=== PATIENT | male | born 1955 | race Caucasian/White ===

== ENCOUNTER 2017-04-10 19:13 | Emergency (ER) | payer OTHER ==
[~2017-04-10] VITALS: Ht 182.9 cm; Wt 154.2 kg
[~2017-04-10 19:13] MED LIST changes: -AMOX-559 PO; -ATOR40TA24 PO; -LISI-362 PO; -MELO-207 PO; -RIVA20TA PO
--- NOTE | 2017-04-10 19:15 | ER Report ---
History and Physical Time Seen By MD: 19:15 HPI/ROS CHIEF COMPLAINT: short of breath HISTORY OF PRESENT ILLNESS: This is a 62 year old male. He was sent to the ER from [facility] urgent care because of shortness of breath and hypoxia. He had back surgery at [facility] this morning, laminectomy done. He has had a terrible sore throat after surgery. He has a history of PE x 2 in the past. Stopped Xarelto for his surgery today and is scheduled to restart it tomorrow. No fevers or chills. Some chest tightness. Mild cough. Hypoxia at urgent care today; feels better with oxygen. Mild congestion. No chest pain except with cough. No abdominal pain, nausea or vomiting. He has had normal urination. Normal bowel movement yesterday, but no bowel movement today. Back with pain expected post-op. REVIEW OF SYSTEMS: Constitutional: No fever or chills. Eyes: No vision changes. ENT: As above. Cardiovascular: No palpitations. Respiratory: As above. Gastrointestinal: No abdominal pain. No nausea or vomiting. Genitourinary: No dysuria. Musculoskeletal: No other musculoskeletal pain. Skin: No rashes. Neurological: No headache. No focal weakness. Allergies: Coded Allergies: Hydromorphone (Verified Adverse Reaction, Severe, BODY JERKS UNCONTROLLABLY, 01/11/13) Home Meds Active Scripts Amoxicillin/Pot Clav 875-125 Mg Tab (AUGMENTIN 875-125 TABLET) 1 Each Tablet, 1 TAB PO Q12H for 10 Days, #20 TAB 0 Refills Prov:FIDELINA SMITH MD 04/10/17 Reported Medications Lisinopril (LISINOPRIL) 10 Mg Tablet, 10 MG PO QDAY, TAB 04/10/17 Meloxicam (MELOXICAM) 15 Mg Tablet, 7.5 MG PO QDAY 04/10/17 Atorvastatin Calcium (LIPITOR) 40 Mg Tablet, 2 TAB PO QDAY, TAB 04/10/17 Rivaroxaban 20 Mg (XARELTO 20 MG) 20 Mg Tablet, 20 MG PO, TAB 04/10/17 Oxycodone Hcl/Acetaminophen (PERCOCET 5-325 MG TABLET) 1 Each Tablet, 1-2 EACH PO Y for PAIN 01/13/13 Metoprolol Tartrate (METOPROLOL TARTRATE) 50 Mg Tab, 1 TAB PO QAM, TAB TAKE ONE TABLET BY MOUTH TWICE A DAY 01/11/13 Cyclosporine (RESTASIS) 1 Each Droperette, 1 EACH OP BID 01/11/13 Insulin Aspart (NOVOLOG) 100 Unit/1 Ml Cartridge, UNIT SQ TID PER SS 01/11/13 Insulin Detemir (LEVEMIR) 100 Unit/Ml Injs, 90 UNIT SUBQ BID 01/11/13 Lansoprazole (PREVACID) 30 Mg Capsule.dr, 30 MG PO QHS, #5 MG TAKE ONE CAPSULE BY MOUTH EVERY DAY 01/11/13 Tamsulosin Hcl (FLOMAX) 0.4 Mg Cap.er.24h, 0.4 MG PO QHS, #5 08/11/12 Duloxetine Hcl (CYMBALTA) 30 Mg Capsule.dr, 30 MG PO QAM 08/11/12 Modafinil (Provigil) 100 Mg Tab, 200 MG PO QAM 04/27/11 Finasteride (Proscar) 5 Mg Tab, 5 MG PO QPM, 0 Refills 10/31/10 Terazosin Hcl (Hytrin) 5 Mg Capsule, 5 MG PO QHS, 0 Refills 10/31/10 Furosemide (Furosemide) 40 Mg Tablet, 40 MG PO QAM, 0 Refills 10/31/10 Sitagliptin Phos/Metformin Hcl (Janumet 50-1,000 Mg Tablet) 1 Udtab Tablet, 1 UDTAB PO QAM, 0 Refills 10/31/10 Gabapentin (Neurontin) 600 Mg Tablet, 600 MG PO PRN, 0 Refills DOSEAGE CHANGES ACCORDING TO NEED (PER PATIENT) 10/31/10 Discontinued Reported Medications Docusate Sodium (COLACE) 100 Mg Capsule, 100 MG PO BID, CAPSULE 01/13/13 Enoxaparin Sodium (LOVENOX) 100 Mg/1 Ml Disp.syrin, 100 MG SQ BID 01/11/13 Warfarin Sod (Coumadin) 1 Mg Tab, 5 MG PO QDAY, #30 3 Refills take 1 tab by mouth once daily 10/31/10 Past Medical/Surgical History PE x 2 in the past. Low back problems with surgery today as noted. Reviewed Nurses Notes: Yes Hx Smoking: No Hx Substance Use Disorder: No Hx Alcohol Use: No Constitutional Vital Sign - Last 24 Hours 04/10/17 04/10/17 04/10/17 2/2/18 19:13 19:17 19:22 19:28 Temp 99.2 Pulse ??? 72 75 Resp 20 B/P (MAP) 124/60 (81) 124/60 Pulse Ox 91 91 O2 Delivery Nasal Cannula 04/10/17 04/10/17 04/10/17 04/10/17 19:30 19:43 19:58 20:00 Pulse 69 ??? B/P (MAP) 125/65 (85) ???/??? (1665) Pulse Ox 93 93 04/10/17 04/10/17 04/10/17 04/10/17 20:13 20:15 20:28 20:30 Pulse ? B/P (MAP) 132/66 (88) O2 Flow Rate 5.0 04/10/17 04/10/17 04/10/17 04/10/17 20:43 20:58 21:00 21:05 Pulse ? 75 B/P (MAP) 128/67 (87) Pulse Ox 93 04/10/17 04/10/17 04/10/17 04/10/17 21:10 21:15 21:20 21:25 Pulse 72 74 75 76 Pulse Ox 93 92 94 91 04/10/17 04/10/17 04/10/17 04/10/17 21:30 21:35 21:40 21:45 Pulse 74 72 72 75 B/P (MAP) 124/60 (81) Pulse Ox 92 94 93 93 04/10/17 04/10/17 04/10/17 04/10/17 21:50 21:55 22:00 22:05 Pulse 75 72 69 70 B/P (MAP) 132/66 (88) Pulse Ox 93 93 93 93 04/10/17 04/10/1704/10/04/10/17 22:10 22:15 22:20 22:25 Pulse 70 69 71 84 Pulse Ox 93 93 92 92 04/10/17 04/10/17 04/10/17 04/10/17 22:30 22:35 22:40 22:45 Pulse 69 72 73 71 B/P (MAP) 132/62 (85) Pulse Ox 91 91 93 90 04/10/17 04/10/17 04/10/17 04/10/17 22:50 22:55 23:00 23:05 Pulse 72 70 73 92 B/P (MAP) 141/65 (90) Pulse Ox 92 89 91 79 Physical Exam General Appearance: The patient is alert. No acute distress. Eyes: Pupils are equal, round. Reactive to light. No pallor, injection or icterus. Extraocular movements are intact. ENT: Mucous membranes are moist. Normal oral mucosa. Posterior oropharynx is erythematous. Normal nasal mucosa. Normal tympanic membranes and canals. Neck: Supple and non tender. No lymphadenopathy. Respiratory: Breathing easily and unlabored. Lungs are clear to auscultation. On oxygen 2 liters by nasal canula. Cardiovascular: Regular rate and rhythm. No murmurs, gallops or rubs. Normal capillary refill. He has chronic bilateral lower extremity edema, wearing compression stockings. Gastrointestinal: Abdomen is soft and non tender. Nondistended. Normal active bowel sounds. Neurological: Alert and oriented x3. No focal neurologic deficits. Skin: Warm and dry. No rashes. Low back incision clean and intact. Some pink serous on the bandage. Musculoskeletal: Extremities are nontender. Tenderness over the surgery site in the low back. DIFFERENTIAL DIAGNOSIS: After history and physical exam, differential diagnosis was considered for shortness of breath with hypoxia, concerning for pulmonary embolism or pulmonary infectious process. Medical Decision Making Data Points Result Diagram: 04/10/17192404/10/171924 Laboratory Hematology Test 04/10/17 19:25 04/10/17 19:40 Red Blood Count 4.25 M/uL (4.00-5.60) Mean Corpuscular Volume 93.4 fL (80.0-96.0) Mean Corpuscular Hemoglobin 31.8 pg (26.0-33.0) Mean Corpuscular Hemoglobin Concent 34.0 g/dL (32.0-36.0) Red Cell Distribution Width 13.8 % (11.5-14.5) Mean Platelet Volume 8.3 fL (7.2-11.1) Neutrophils (%) (Auto) 75.9 % (39.4-72.5) Lymphocytes (%) (Auto) 10.0 % (17.6-49.6) Monocytes (%) (Auto) 13.1 % (4.1-12.4) Eosinophils (%) (Auto) 0.5 % (0.4-6.7) Basophils (%) (Auto) 0.5 % (0.3-1.4) Nucleated RBC Relative Count (auto) 0.0 /100WBC Neutrophils # (Auto) 5.7 K/uL (2.0-7.4) Lymphocytes # (Auto) 0.8 K/uL (1.3-3.6) Monocytes # (Auto) 1.0 K/uL (0.3-1.0) Eosinophils # (Auto) 0.0 K/uL (0.0-0.5) Basophils # (Auto) 0.0 K/uL (0.0-0.1) Nucleated RBC Absolute Count (auto) 0.00 K/uL Prothrombin Time 13.7 seconds (12.0-14.4) Prothromb Time International Ratio 1.05 Activated Partial Thromboplast Time 24 seconds (23-35) Sodium Level 138 mmol/L (137-145) Potassium Level 4.6 mmol/L (3.5-5.0) Chloride Level 100 mmol/L (98-107) Carbon Dioxide Level 27 mmol/L (22-30) Blood Urea Nitrogen 22 mg/dl (9-21) Creatinine 1.50 mg/dl (0.66-1.25) Glomerular Filtration Rate Calc 47.1 Random Glucose 159 mg/dl (75-110) Calcium Level 9.6 mg/dl (8.4-10.2) Total Bilirubin 0.5 mg/dl (0.2-1.3) Aspartate Amino Transf (AST/SGOT) 84 U/L (0-35) Alanine Aminotransferase (ALT/SGPT) 39 U/L (0-56) Alkaline Phosphatase 83 U/L (0-126) Troponin I < 0.012 ng/ml B-Type Natriuretic Peptide 30 pg/ml (0-100) Total Protein 6.9 gm/dl (6.3-8.2) Albumin 3.9 g/dl (3.5-5.0) Group A Streptococcus Screen Negative (NEGATIVE) Chemistry Test 04/10/17 19:25 04/10/17 19:40 White Blood Count 7.5 k/uL (4.5-11.0) Red Blood Count 4.25 M/uL (4.00-5.60) Hemoglobin 13.5 g/dL (14.0-18.0) Hematocrit 39.7 % (42.0-52.0) Mean Corpuscular Volume 93.4 fL (80.0-96.0) Mean Corpuscular Hemoglobin 31.8 pg (26.0-33.0) Mean Corpuscular Hemoglobin Concent 34.0 g/dL (32.0-36.0) Red Cell Distribution Width 13.8 % (11.5-14.5) Platelet Count 151 K/uL (150-450) Mean Platelet Volume 8.3 fL (7.2-11.1) Neutrophils (%) (Auto) 75.9 % (39.4-72.5) Lymphocytes (%) (Auto) 10.0 % (17.6-49.6) Monocytes (%) (Auto) 13.1 % (4.1-12.4) Eosinophils (%) (Auto) 0.5 % (0.4-6.7) Basophils (%) (Auto) 0.5 % (0.3-1.4) Nucleated RBC Relative Count (auto) 0.0 /100WBC Neutrophils # (Auto) 5.7 K/uL (2.0-7.4) Lymphocytes # (Auto) 0.8 K/uL (1.3-3.6) Monocytes # (Auto) 1.0 K/uL (0.3-1.0) Eosinophils # (Auto) 0.0 K/uL (0.0-0.5) Basophils # (Auto) 0.0 K/uL (0.0-0.1) Nucleated RBC Absolute Count (auto) 0.00 K/uL Prothrombin Time 13.7 seconds (12.0-14.4) Prothromb Time International Ratio 1.05 Activated Partial Thromboplast Time 24 seconds (23-35) Glomerular Filtration Rate Calc 47.1 Calcium Level 9.6 mg/dl (8.4-10.2) Total Bilirubin 0.5 mg/dl (0.2-1.3) Aspartate Amino Transf (AST/SGOT) 84 U/L (0-35) Alanine Aminotransferase (ALT/SGPT) 39 U/L (0-56) Alkaline Phosphatase 83 U/L (0-126) Troponin I < 0.012 ng/ml B-Type Natriuretic Peptide 30 pg/ml (0-100) Total Protein 6.9 gm/dl (6.3-8.2) Albumin 3.9 g/dl (3.5-5.0) Group A Streptococcus Screen Negative (NEGATIVE) Coagulation Test 04/10/17 19:25 Prothrombin Time 13.7 seconds Prothromb Time International Ratio 1.05 Activated Partial Thromboplast Time 24 seconds EKG/Imaging EKG Interpretation 12 lead EKG: Rhythm: normal sinus rhythm, rate 76. One PVC. Victor: normal QRS: normal ST segments: normal Imaging CTA CHEST WW/O CNTR (PULM ANG) HISTORY: short of breath, hypoxia ADDITIONAL HISTORY: None. TECHNIQUE: CTA chest with intravenous contrast. Axial imaging acquired following administration of IV contrast timed for maximum opacification of the pulmonary arterial vasculature. Slab 3-D MIP reconstructed images were also created for further evaluation and interpretation. Reconstruction of the source data set includes multiplanar 2-D in the sagittal and coronal planes and 3-D reconstructed coronal slab MIP series. 3-D images were created by the technologist. One of the following dose optimization techniques was utilized in the performance of this exam: Automated exposure control; adjustment of the mA and/or kV according to the patient's size; or use of an iterative reconstruction technique. Specific details can be referenced in the facility's radiology CT exam operational policy. CONTRAST: 80 mL Isovue-370 COMPARISON: FINDINGS: Lungs/pleura: There is left lower lobe pulmonary consolidation. A 2 cm bulla is seen in the left upper lobe. The right lung is well aerated. 4 mm subpleural calcified nodule is noted consistent with a granuloma. Heart/vessels: The acquisition is slightly late with suboptimal opacification of the pulmonary arterial tree. However, I believe it is sufficient to exclude pulmonary emboli through at least the central pulmonary arteries. Mediastinum/lymph nodes: Negative. Visualized upper abdomen: Negative. Bones/soft tissues: Negative. Additional findings: None IMPRESSION: Left lower lobe pulmonary consolidation concerning for pneumonia and probable etiology of patient's symptoms. Suboptimal pulmonary arterial tree enhancement but I believe sufficient to exclude at least central pulmonary emboli. Report Dictated By: Nathaniel Messina MD at 04/10/2017 8:33 PM ED Course/Re-evaluation Clinical Indication for ER IV: Hydration, IV Access ED Course CTA was ordered because of risk of PE. Sub-optimal contrast timing, but no evidence of PE. Did have a small area of consolidation of the left base. His oxygen saturations are 92% on 4 liters by nasal canula. He is on oxygen at home and this is his normal amount. No fevers at this time. Labs are otherwise unremarkable. Reviewed the labs results with the patient. Will start on Augmentin 875/125 twice a day for 10 days. He will call to follow-up with Dr. Arredondo after the weekend on Thursday. Decision to Disposition Date: Apr 10, 2017 Decision to Disposition Time: 23:01 Depart Departure Latest Vital Signs Vital Signs Date Time Temp Pulse Resp B/P (MAP) Pulse Ox O2 Delivery O2 Flow Rate FiO2 04/10/17 23:05 92 79 04/10/17 23:00 141/65 (90) 04/10/17 20:15 5.0 04/10/17 19:22 99.2 20 Nasal Cannula Impression: Primary Impression: Pneumonia Condition: Improved Disposition: HOME OR SELF-CARE Referrals: LAMINE ARREDONDO DO (PCP) New Scripts Amoxicillin/Pot Clav 875-125 Mg Tab (AUGMENTIN 875-125 TABLET) 1 Each Tablet 1 TAB PO Q12H for 10 Days, #20 TAB 0 Refills Prov: FIDELINA SMITH MD 04/10/17 Patient Instructions: Bacterial Pneumonia (ED) Additional Instructions: Take the antibiotic Augmentin 875/125 twice a day for 10 days. Keep using your oxygen at 4 liters. Call and arrange follow-up with Dr. Arredondo this week. Follow-up with your back surgeon as planned next week. Problem Qualifiers Primary Impression: Pneumonia Pneumonia type: due to unspecified organism Laterality: left Lung location : lower lobe of lung Qualified Codes: J18.1 - Lobar pneumonia, unspecified organism FIDELINA SMITH MD Apr 10, 2017 19:15
[2017-04-10] MEDS ORDERED: NS(*) 0.9% 1000 ML BAG 1,000 ML IV ONE (19:22)
[2017-04-10 19:37] LABS: PLATELET COUNT, AUTOMATED 151 K/uL (150-450)
[2017-04-10 19:43] LABS: INR 1.05
--- NOTE | 2017-04-10 19:43 | EKG ---
FACILITY: [facility] PATIENT NAME: TASHA PATHAK : [id number] MR: [id number] V: [id number] EXAM DATE: ORDERING PHYSICIAN: FIDELINA SMITH TECHNOLOGIST: [place] Reason : Blood Pressure : / mmHG Vent. Rate : 076 BPM Atrial Rate : 076 BPM P-R Int : 166 ms QRS Dur : 080 ms QT Int : 360 ms P-R-T Axes : 052 -11 025 degrees QTc Int : 405 ms Sinus rhythm with occasional premature ventricular complexes Otherwise normal ECG When compared with ECG of 11-JAN-2013 12:12, premature ventricular complexes are now present Questionable change in QRS axis Confirmed by NOREEN GILL ([id number]) on 04/11/2017 7:45:12 AM Referred By: Confirmed By:NOREEN GILL
[2017-04-10] MEDS ORDERED: RIVA20TA PO (19:44)
[2017-04-10] MEDS ORDERED: ATOR40TA24 PO (19:46)
[2017-04-10] MEDS ORDERED: LISI-362 PO (19:47)
[2017-04-10] MEDS ORDERED: MELO-207 PO (19:47)
[2017-04-10] MEDS ORDERED: IOPAMIDOL 76% 75 ML INFUS BTL 75 ML ONE (19:57)
[2017-04-10] MEDS ORDERED: NS 0.9% 20 ML SDV 100 ML ONE (19:57)
--- NOTE | 2017-04-10 21:38 | RADIOLOGY IMAGING REPORT ---
[facility] PATIENT NAME: Jus Olivo : 1955 MR: [id number] V: [id number] EXAM DATE: ORDERING PHYSICIAN: FIDELINA SMITH TECHNOLOGIST: Location: [facility] [place] Patient: Jus Olivo : 1955 Visit/Account:[id number] Date of Sevice: 04/10/2017 CTA CHEST WW/O CNTR (PULM ANG) HISTORY: short of breath, hypoxia ADDITIONAL HISTORY: None. TECHNIQUE: CTA chest with intravenous contrast. Axial imaging acquired following administration of IV contrast timed for maximum opacification of the pulmonary arterial vasculature. Slab 3-D MIP solitario nstructed images were also created for further evaluation and interpretation. Reconstruction of the [facility] data set includes multiplanar 2-D in the sagittal and coronal planes and 3-D reconstructed kelly nal slab MIP series. 3-D images were created by the technologist. One of the following dose optimiz ation techniques was utilized in the performance of this exam: Automated exposure control; adjustment of the mA and/or kV according to the patient's size; or use of an iterative reconstruction techniqu e. Specific details can be referenced in the facility's radiology CT exam operational policy. CONTRAST: 80 mL Isovue-370 COMPARISON: FINDINGS: Lungs/pleura: There is left lower lobe pulmonary consolidation. A 2 cm bulla is seen in the left uppe r lobe. The right lung is well aerated. 4 mm subpleural calcified nodule is noted consistent with a g ranuloma. Heart/vessels: The acquisition is slightly late with suboptimal opacification of the pulmonary arter ial tree. However, I believe it is sufficient to exclude pulmonary emboli through at least the centra l pulmonary arteries. Mediastinum/lymph nodes: Negative. Visualized upper abdomen: Negative. Bones/soft tissues: Negative. Additional findings: None IMPRESSION: Left lower lobe pulmonary consolidation concerning for pneumonia and probable etiology of patient's s ymptoms. Suboptimal pulmonary arterial tree enhancement but I believe sufficient to exclude at least central p ulmonary emboli. Report Dictated By: Nathaniel Messina MD at 04/10/2017 8:33 PM Report E-Signed By: Nathaniel Messina MD at 04/10/2017 9:34 PM WSN:[id number]
[2017-04-10 23:00] VITALS: BP 141/65
[2017-04-10] MEDS ORDERED: AMOX/CLAV 875 MG TAB PO ONE (23:00)
[2017-04-10] MEDS ORDERED: AMOX-559 PO (23:02)
== END 2017-04-10 23:20 | disposition home or self-care (01) ==
LOC: ER 19:19
DX: J18.1 Lobar pneumonia, unspecified organism (principal)
CPT/HCPCS: 71275; 83880; 84484; 85025; 85610; 85730; 87081; 87880; 93005; 96360; 96361; 99284; J7030; J7050; Q9967; 82040; 82247; 82310; 82374; 82435; 82565; 82947; 84075; 84132; 84155; 84295; 84450; 84460; 84520

== ENCOUNTER → 2017-04-10 | Outpatient (CLI) | payer OTHER ==
[~2017-04-10] MED LIST: AMOX-559 PO; ATOR40TA24 PO; CEP500 PO; CYC10 PO; CYCL1DRO6 OP; DOCU-416 PO; DOXY150T6 PO; DULO30CA35 PO; ENO100I; ENO40I SQ; ENOX100D5 SQ; FIN5 PO; FURO-47 PO; GABA-1 PO; HUM100VI15 SQ; HYD2 PO; HYDROCODONE PO; INSU100C14 SQ; INSU100I36 SQ; KET10 PO; LAN30PT PO; LEVI SQ; LEVI SUBQ; LISI-362 PO; MAX75 PO; MEC25 PO; MELO-207 PO; MET50 PO; METANXPT PO; METO-253 PO; METO-259 PO; MOD100 PO; MODA100T32 PO; MODA200T39 PO; NIT4 SL; NOR25 PO; NOVOLOG SC; OFF WARFARIN; OMEP-153 PO; OMEP40CA79 PO; ONDA4TAB PO; OXY10 PO; OXYC-689 PO; OXYC-865 PO; OXYC20TA86 PO; RIVA20TA PO; SITA1TAB16 PO; TAMS0.4C25 PO; TERA10CA42 PO; TERA5CAP57 PO; WAR1 PO; WAR5 PO; WARF4TAB47 PO
== END ==
LOC: AMB 18:44
PROVIDERS: ATTEND Nurse Practitioner
DX: R07.89 Other chest pain (principal); R07.0 Pain in throat; R09.02 Hypoxemia
CPT/HCPCS: A0425; A0427

== ENCOUNTER 2017-05-22 12:47 | Emergency (ER) | payer OTHER ==
[~2017-05-22 12:47] MED LIST changes: +AMOX-559 PO; +ATOR40TA24 PO; +LISI-362 PO; +MELO-207 PO; +RIVA20TA PO
--- NOTE | 2017-05-22 12:55 | ER Report ---
History and Physical Time Seen By MD: 12:53 HPI/ROS CHIEF COMPLAINT: Patient sent for possible pneumonia from urgent care HISTORY OF PRESENT ILLNESS: This 62-year-old male referred to the emergency Department from [facility] for evaluation of shortness of breath and possible pneumonia. Patient has been seen twice at the urgent care facility and recently started on doxycycline for a clinical diagnosis of pneumonia. Patient still feeling short of breath has a history of PE 2 in the past medication list states that he is on xarelto. Patient states that he is been coughing up green sputum for the past 3-4 days. Subjective fevers but did not actually take his temperature. Patient does have some pleuritic chest pain and pain with cough but denies actual pain otherwise. Patient has a history of multiple episodes of acute bronchitis. He is oxygen dependent and wears 3-5 L continuously. REVIEW OF SYSTEMS: Constitutional: Subjective fevers no chills Eyes: No discharge. ENT: No sore throat. Cardiovascular: Pleuritic chest pain, no palpitations Respiratory: Hacking productive cough of green sputum Gastrointestinal: No abdominal pain, no vomiting. Genitourinary: No hematuria. Musculoskeletal: No back pain. Skin: No rashes. Neurological: No headache. Allergies: Coded Allergies: hydromorphone (Verified Adverse Reaction, Severe, BODY JERKS UNCONTROLLABLY, 05/22/17) Home Meds Active Scripts Albuterol Sulfate 0.083% (ALBUTEROL SULFATE 0.083%) 2.5 Mg/3 Ml Vial.neb, 2.5 MG INH Q6H for cough, #1 BOX 0 Refills Prov:EMMA ESPINOZA MD 05/22/17 Promethazine HCl/Codeine (Promethazine-Codeine Syrup) 6.25 Mg-10 Mg/5 Ml Syrup, 5 ML PO Q6H for cough, #120 ML 0 Refills Prov:EMMA ESPINOZA MD 05/22/17 Reported Medications Benzonatate 100 Mg Cap (TESSALON PERLE 100 MG CAP) 100 Mg Capsule, 200 MG PO TID , #15 CAP 05/22/17 Doxycycline Hyclate (DOXYCYCLINE HYCLATE) 100 Mg Tablet.dr, 100 MG PO BID 05/22/17 Doxycycline Hyclate (DOXYCYCLINE HYCLATE) 100 Mg Capsule, 100 MG PO BID, CAPSULE 05/22/17 Levothyroxine Sodium (SYNTHROID) 50 Mcg Tablet, 50 MCG PO QDAY, TAB 05/22/17 Glipizide (GLIPIZIDE XL) 2.5 Mg Tab.er.24, 2.5 MG PO DAILY 05/22/17 Metaxalone (METAXALONE) 800 Mg Tablet, 800 MG PO DAILY 05/22/17 Omeprazole (OMEPRAZOLE) 20 Mg Capsule.dr, 1 CAP PO QDAY, CAP 05/22/17 Lisinopril (LISINOPRIL) 10 Mg Tablet, 10 MG PO QDAY, TAB 04/10/17 Meloxicam (MELOXICAM) 15 Mg Tablet, 15 MG PO QDAY 04/10/17 Atorvastatin Calcium (LIPITOR) 40 Mg Tablet, 2 TAB PO QDAY, TAB 04/10/17 Rivaroxaban 20 Mg (XARELTO 20 MG) 20 Mg Tablet, 20 MG PO DAILY, TAB 04/10/17 Metoprolol Tartrate (METOPROLOL TARTRATE) 50 Mg Tab, 1 TAB PO QAM, TAB 01/11/13 Insulin Aspart (NOVOLOG) 100 Unit/1 Ml Cartridge, UNIT SQ TID PER SS 01/11/13 Insulin Detemir (LEVEMIR) 100 Unit/Ml Injs, 90 UNIT SUBQ BID 01/11/13 Lansoprazole (PREVACID) 30 Mg Capsule.dr, 30 MG PO QHS, #5 MG TAKE ONE CAPSULE BY MOUTH EVERY DAY 01/11/13 Duloxetine Hcl (CYMBALTA) 30 Mg Capsule.dr, 30 MG PO QAM 08/11/12 Modafinil (Provigil) 100 Mg Tab, 200 MG PO QAM 04/27/11 Finasteride (Proscar) 5 Mg Tab, 5 MG PO QPM, 0 Refills 10/31/10 Terazosin Hcl (Hytrin) 5 Mg Capsule, 5 MG PO QHS, 0 Refills 10/31/10 Furosemide (Furosemide) 40 Mg Tablet, 40 MG PO QAM, 0 Refills 10/31/10 Sitagliptin Phos/Metformin Hcl (Janumet 50-1,000 Mg Tablet) 1 Udtab Tablet, 1 UDTAB PO QAM, 0 Refills 10/31/10 Gabapentin (Neurontin) 600 Mg Tablet, 600 MG PO PRN, 0 Refills DOSEAGE CHANGES ACCORDING TO NEED (PER PATIENT) 10/31/10 Discontinued Reported Medications Oxycodone Hcl/Acetaminophen (PERCOCET 5-325 MG TABLET) 1 Each Tablet, 1-2 EACH PO Y for PAIN 01/13/13 Cyclosporine (RESTASIS) 1 Each Droperette, 1 EACH OP BID 01/11/13 Tamsulosin Hcl (FLOMAX) 0.4 Mg Cap.er.24h, 0.4 MG PO QHS, #5 08/11/12 Discontinued Scripts Amoxicillin/Pot Clav 875-125 Mg Tab (AUGMENTIN 875-125 TABLET) 1 Each Tablet, 1 TAB PO Q12H for 10 Days, #20 TAB 0 Refills Prov:FIDELINA SMITH MD 04/10/17 Past Medical/Surgical History Past medical history for pulmonary embolism 2 in the past history of insulin requiring diabetes history of hypercholesterolemia and hypertension Hx Smoking: No Hx Substance Use Disorder: No Hx Alcohol Use: No Constitutional Vital Sign - Last 24 Hours 05/22/17 05/22/17 05/22/17 05/22/17 12:51 12:51 13:00 14:05 Temp 98.8 Pulse 86 62 Resp 22 7 B/P (MAP) 136/72 136/72 (93) Pulse Ox 94 94 93 O2 Delivery Nasal Cannula Nasal Cannula O2 Flow Rate 5.0 4.0 05/22/17 05/22/17 05/22/17 05/22/17 14:05 14:16 14:30 15:18 Pulse 69 73 69 Resp 12 12 23 B/P (MAP) 124/76 (92) Pulse Ox 92 94 O2 Delivery Nasal Cannula O2 Flow Rate 4.0 05/22/17 05/22/17 05/22/17 15:18 15:27 16:15 Pulse 95 69 72 Resp 12 12 18 B/P (MAP) 116/44 (68) Pulse Ox 93 Physical Exam General Appearance: The patient is alert, has no immediate need for airway protection and no signs of toxicity. Eyes: Pupils equal and round no pallor or injection. ENT, Mouth: Mucous membranes are moist. Respiratory: Patient has no retractions. Lungs are diminished breath sounds bilaterally with inspiratory rhonchi as well as expiratory rhonchi with wheezes heightened with cough. Cardiovascular: Regular rate and rhythm. Gastrointestinal: Abdomen is soft and non tender, no masses, bowel sounds normal. Neurological: Awake alert nontoxic Skin: Warm and dry, no rashes. Musculoskeletal: Neck is supple non tender. Extremities are nontender, nonswollen and have full range of motion. Medical Decision Making Data Points Result Diagram: 05/22/17 1323 05/22/17 1323 Laboratory Hematology Test 05/22/17 13:23 05/22/17 14:00 Red Blood Count 4.16 M/uL (4.00-5.60) Mean Corpuscular Volume 93.5 fL (80.0-96.0) Mean Corpuscular Hemoglobin 31.8 pg (26.0-33.0) Mean Corpuscular Hemoglobin Concent 34.0 g/dL (32.0-36.0) Red Cell Distribution Width 13.6 % (11.5-14.5) Mean Platelet Volume 8.5 fL (7.2-11.1) Neutrophils (%) (Auto) 74.9 % (39.4-72.5) Lymphocytes (%) (Auto) 8.7 % (17.6-49.6) Monocytes (%) (Auto) 13.7 % (4.1-12.4) Eosinophils (%) (Auto) 2.0 % (0.4-6.7) Basophils (%) (Auto) 0.7 % (0.3-1.4) Nucleated RBC Relative Count (auto) 0.2 /100WBC Neutrophils # (Auto) 3.3 K/uL (2.0-7.4) Lymphocytes # (Auto) 0.4 K/uL (1.3-3.6) Monocytes # (Auto) 0.6 K/uL (0.3-1.0) Eosinophils # (Auto) 0.1 K/uL (0.0-0.5) Basophils # (Auto) 0.0 K/uL (0.0-0.1) Nucleated RBC Absolute Count (auto) 0.01 K/uL Prothrombin Time 15.4 seconds (12.0-14.4) Prothromb Time International Ratio 1.21 Activated Partial Thromboplast Time 29 seconds (23-35) Sodium Level 134 mmol/L (137-145) Potassium Level 5.1 mmol/L (3.5-5.0) Chloride Level 98 mmol/L (98-107) Carbon Dioxide Level 26 mmol/L (22-30) Blood Urea Nitrogen 26 mg/dl (9-21) Creatinine 1.40 mg/dl (0.66-1.25) Glomerular Filtration Rate Calc 51.0 Random Glucose 278 mg/dl (75-110) Calcium Level 9.6 mg/dl (8.4-10.2) Total Bilirubin 0.4 mg/dl (0.2-1.3) Aspartate Amino Transf (AST/SGOT) 30 U/L (0-35) Alanine Aminotransferase (ALT/SGPT) 44 U/L (0-56) Alkaline Phosphatase 98 U/L (0-126) Troponin I < 0.012 ng/ml B-Type Natriuretic Peptide 42 pg/ml (0-100) Total Protein 6.7 gm/dl (6.3-8.2) Albumin 4.0 g/dl (3.5-5.0) Influenza Virus Type A (PCR) Negative (NEGATIVE) Influenza Virus Type B (PCR) Negative (NEGATIVE) Chemistry Test 05/22/17 13:23 05/22/17 14:00 White Blood Count 4.5 k/uL (4.5-11.0) Red Blood Count 4.16 M/uL (4.00-5.60) Hemoglobin 13.2 g/dL (14.0-18.0) Hematocrit 38.9 % (42.0-52.0) Mean Corpuscular Volume 93.5 fL (80.0-96.0) Mean Corpuscular Hemoglobin 31.8 pg (26.0-33.0) Mean Corpuscular Hemoglobin Concent 34.0 g/dL (32.0-36.0) Red Cell Distribution Width 13.6 % (11.5-14.5) Platelet Count 148 K/uL (150-450) Mean Platelet Volume 8.5 fL (7.2-11.1) Neutrophils (%) (Auto) 74.9 % (39.4-72.5) Lymphocytes (%) (Auto) 8.7 % (17.6-49.6) Monocytes (%) (Auto) 13.7 % (4.1-12.4) Eosinophils (%) (Auto) 2.0 % (0.4-6.7) Basophils (%) (Auto) 0.7 % (0.3-1.4) Nucleated RBC Relative Count (auto) 0.2 /100WBC Neutrophils # (Auto) 3.3 K/uL (2.0-7.4) Lymphocytes # (Auto) 0.4 K/uL (1.3-3.6) Monocytes # (Auto) 0.6 K/uL (0.3-1.0) Eosinophils # (Auto) 0.1 K/uL (0.0-0.5) Basophils # (Auto) 0.0 K/uL (0.0-0.1) Nucleated RBC Absolute Count (auto) 0.01 K/uL Prothrombin Time 15.4 seconds (12.0-14.4) Prothromb Time International Ratio 1.21 Activated Partial Thromboplast Time 29 seconds (23-35) Glomerular Filtration Rate Calc 51.0 Calcium Level 9.6 mg/dl (8.4-10.2) Total Bilirubin 0.4 mg/dl (0.2-1.3) Aspartate Amino Transf (AST/SGOT) 30 U/L (0-35) Alanine Aminotransferase (ALT/SGPT) 44 U/L (0-56) Alkaline Phosphatase 98 U/L (0-126) Troponin I < 0.012 ng/ml B-Type Natriuretic Peptide 42 pg/ml (0-100) Total Protein 6.7 gm/dl (6.3-8.2) Albumin 4.0 g/dl (3.5-5.0) Influenza Virus Type A (PCR) Negative (NEGATIVE) Influenza Virus Type B (PCR) Negative (NEGATIVE) Coagulation Test 05/22/17 13:23 Prothrombin Time 15.4 seconds Prothromb Time International Ratio 1.21 Activated Partial Thromboplast Time 29 seconds EKG/Imaging EKG Interpretation EKG from 04/10/2017 shows normal sinus rhythm with occasional premature ventricular contractions. Monitor Interpretation: Normal Sinus Rhythm Imaging FACILITY: [facility] PATIENT NAME: Jus Olivo : 1955 MR: [id number] V: [id number] EXAM DATE: ORDERING PHYSICIAN: EMMA ESPINOZA TECHNOLOGIST: Location: [facility] [place] Patient: Jus Olivo : 1955 Visit/Account:[id number] Date of Sevice: 05/22/2017 CT angiogram chest with contrast Indication: Short of breath. Comparison: 04/10/2017. Technique: Axial CT images are obtained through the chest after administration of 100 mL Isovue 370 IV contrast. Reformatted coronal and sagittal images were reviewed as well as coronal MIP images. One of the following dose optimization techniques was utilized in the performance of this exam: automated exposure control; adjustment of the mA and/ or kV according to the patient's size; or use of an iterative reconstruction technique. Specific details can be referenced in the facility's radiology CT exam operational policy. FINDINGS: No evidence of filling defect within the pulmonary vasculature to suggest pulmonary embolus. Heart is normal size without pericardial effusion. Aorta shows no aneurysm or dissection. The mediastinum and hilar regions show no enlarged lymph node or abnormal density. The left lower lobe shows improved aeration with mild residual postinflammatory changes and scarring. No focal consolidation. The lungs are otherwise clear. No effusion or pneumothorax. There is a stable 5 mm nodule seen in the lateral aspect of the right middle lobe. This appears to be present back in 2009. No other discrete nodules. The airways are clear. The bony structures show no acute fractures or discrete bony lesions. Chest wall shows no enlarged axillary lymph nodes or masses. Small hiatal hernia. The upper abdomen is otherwise unremarkable. IMPRESSION: 1. No evidence of pulmonary embolus. 2. No focal infiltrate. The left lower lobe shows improved aeration with mild residual postinflammatory changes and scarring present. 3. Stable right middle lobe nodule. Report Dictated By: Carlos Alberto Atkinson at 05/22/2017 3:07 PM Report E-Signed By: Carlos Alberto Atkinson at 05/22/2017 3:25 PM [id number] ED Course/Re-evaluation Clinical Indication for ER IV: Hydration, IV Access ED Course 05/22/2017 3:34:[address] scan of the chest reveals no acute infiltrates or pulmonary emboli. Plan at this time will be to give a dose of IV Rocephin in the emergency department we will discharge the patient home on a nebulizer machine with continued O2 I will also prescribe cough suppressant I will have the patient continue his outpatient doxycycline Decision to Disposition Date: May 22, 2017 Decision to Disposition Time: 15:36 Depart Departure Latest Vital Signs Vital Signs Date Time Temp Pulse Resp B/P (MAP) Pulse Ox O2 Delivery O2 Flow Rate FiO2 05/22/17 16:15 72 18 116/44 (68) 93 05/22/17 15:18 Nasal Cannula 4.0 05/22/17 12:51 98.8 Impression: Primary Impression: Acute bronchitis Condition: Improved Disposition: HOME OR SELF-CARE Referrals: LAMINE JAMA DO (PCP) 2 Days If symptoms persist New Scripts Albuterol Sulfate 0.083% (ALBUTEROL SULFATE 0.083%) 2.5 Mg/3 Ml Vial.neb 2.5 MG INH Q6H for cough, #1 BOX 0 Refills Prov: EMMA ESPINOZA MD 05/22/17 Promethazine HCl/Codeine (Promethazine-Codeine Syrup) 6.25 Mg-10 Mg/5 Ml Syrup 5 ML PO Q6H for cough, #120 ML 0 Refills Prov: EMMA ESPINOZA MD 05/22/17 Departure Forms: ER Transition Record, Home Oxygen, Nebulizer RX, Durable Medical Equipment-Oxygen: Nebulizer Reason for Use/Diagnosis: acute bronchitis Start Date of the Order: May 22, 2017 Route of Administration (if applicable): Other Duration Home O2 Required: 14 Duration Units: Days Room Air Oxygen Saturation: 85 ER Prescribing Physician's Name: Emma Espinoza NPI Numbers for Local ER MDs: Olga [id number] Medications Reconciliation, Patient Portal Information Patient Instructions: Acute Bronchitis (GEN) Additional Instructions: Continue your doxycycline until completed Schedule follow-up appointment with her primary care provider if her symptoms do not improve within 48 hours. Use the albuterol home nebulizer every 6 hours for the next 72 hours and then every 4-6 hours as needed for cough or shortness of breath Problem Qualifiers Primary Impression: Acute bronchitis Bronchitis organism: unspecified organism Qualified Codes: J20.9 - Acute bronchitis, unspecified EMMA ESPINOZA MD May 22, 2017 12:55
[2017-05-22] MEDS ORDERED: OMEP-125 PO (13:01)
[2017-05-22] MEDS ORDERED: GLIP2.5T3 PO (13:01)
[2017-05-22] MEDS ORDERED: DOXY-181 PO (13:01)
[2017-05-22] MEDS ORDERED: BENZ100C4 PO (13:01)
[2017-05-22] MEDS ORDERED: META-1 PO (13:01)
[2017-05-22] MEDS ORDERED: LEVO50TA80 PO (13:01)
[2017-05-22] MEDS ORDERED: DOXY-228 PO (13:01)
[2017-05-22] MEDS ORDERED: ASPIRIN 81 MG CHEW PO ONE (13:15)
[2017-05-22 13:40] LABS: PLATELET COUNT, AUTOMATED 148 K/uL (150-450)
[2017-05-22] MEDS ORDERED: NS(*) 0.9% 500 ML BAG 500 ML IV ONE (13:50)
--- NOTE | 2017-05-22 13:55 | EKG ---
FACILITY: [facility] PATIENT NAME: TASHA PATHAK : [id number] MR: [id number] V: [id number] EXAM DATE: ORDERING PHYSICIAN: EMMA ROMANO TECHNOLOGIST: BYRAN Villa Reason : RESP Blood Pressure : / mmHG Vent. Rate : 063 BPM Atrial Rate : 063 BPM P-R Int : 170 ms QRS Dur : 078 ms QT Int : 372 ms P-R-T Axes : 058 014 042 degrees QTc Int : 380 ms Sinus rhythm No acute appearing findings Confirmed by HANNAH VELASCO ([id number]) on 05/23/2017 5:42:14 AM Referred By: NATE Confirmed By:HANNAH VELASCO
[2017-05-22 14:05] LABS: INR 1.21
[2017-05-22] MEDS ORDERED: ALBUTEROL/IPRATROPIUM 3 ML NEB NEB ONE ×2 (14:05→15:15)
[2017-05-22] MEDS ORDERED: NS 0.9% 150 ML BAG 150 ML ONE (14:37)
[2017-05-22] MEDS ORDERED: IOPAMIDOL 76% 100 ML INFUS BTL 100 ML ONE (14:37)
--- NOTE | 2017-05-22 15:29 | RADIOLOGY IMAGING REPORT ---
FACILITY: [facility] PATIENT NAME: Jus Olivo : 1955 MR: [id number] V: [id number] EXAM DATE: ORDERING PHYSICIAN: EMMA ROMANO TECHNOLOGIST: Location: [facility] [place] Patient: Jus Olivo : 1955 Visit/Account:[id number] Date of Sevice: 05/22/2017 CT angiogram chest with contrast Indication: Short of breath. Comparison: 04/10/2017. Technique: Axial CT images are obtained through the chest after administration of 100 mL Isovue 370 I V contrast. Reformatted coronal and sagittal images were reviewed as well as coronal MIP images. One of the following dose optimization techniques was utilized in the performance of this exam: auto mated exposure control; adjustment of the mA and/or kV according to the patient's size; or use of an iterative reconstruction technique. Specific details can be referenced in the facility's radiology C T exam operational policy. FINDINGS: No evidence of filling defect within the pulmonary vasculature to suggest pulmonary embolus. Heart is normal size without pericardial effusion. Aorta shows no aneurysm or dissection. The mediast inum and hilar regions show no enlarged lymph node or abnormal density. The left lower lobe shows improved aeration with mild residual postinflammatory changes and scarring. No focal consolidation. The lungs are otherwise clear. No effusion or pneumothorax. There is a stabl e 5 mm nodule seen in the lateral aspect of the right middle lobe. This appears to be present back in 2009. No other discrete nodules. The airways are clear. The bony structures show no acute fractures or discrete bony lesions. Chest wall shows no enlarged ax illary lymph nodes or masses. Small hiatal hernia. The upper abdomen is otherwise unremarkable. IMPRESSION: 1. No evidence of pulmonary embolus. 2. No focal infiltrate. The left lower lobe shows improved aeration with mild residual postinflammato ry changes and scarring present. 3. Stable right middle lobe nodule. Report Dictated By: Carlos Alberto Atkinson at 05/22/2017 3:07 PM Report E-Signed By: Carlos Albetro Atkinson at 05/22/2017 3:25 PM [id number]
[2017-05-22] MEDS ORDERED: CODE118S5 PO (15:39)
[2017-05-22] MEDS ORDERED: ALBU2.5V36 INH (15:39)
[2017-05-22] MEDS ORDERED: cefTRIAXone 1 GM VIAL IVP ONE (15:45)
[2017-05-22 16:15] VITALS: BP 116/44
== END 2017-05-22 16:25 | disposition home or self-care (01) ==
LOC: ER 12:48
DX: J20.9 Acute bronchitis, unspecified (principal)
CPT/HCPCS: 71275; 83880; 84484; 85025; 85610; 85730; 87040; 87502; 93005; 94640; 96374; 99284; J0696; J7040; J7620; Q9967; 82040; 82247; 82310; 82374; 82435; 82565; 82947; 84075; 84132; 84155; 84295; 84450; 84460; 84520

== ENCOUNTER 2017-10-23 20:51 | Inpatient (IN) | payer OTHER, MEDICARE ==
[~2017-10-23] VITALS: Ht 175.3 cm; Wt 152.4 kg
[~2017-10-23 20:51] MED LIST changes: -GLIM2TAB43 PO; -LEVO-85 PO; -OXYGENHOME INH
--- NOTE | 2017-10-23 21:08 | ER Report ---
History and Physical Time Seen By MD: 21:08 Hx. of Stated Complaint: PATIENT HAS BEEN FEELING LETHARGIC AND WEAK FOR A COUPLE OF DAYS, TODAY HE WAS FEELING REALLY WEAK, COULDN'T GET UP OUT OF CHAIR. HPI/ROS CHIEF COMPLAINT: severe weakness HISTORY OF PRESENT ILLNESS: This is a 62 year old male. He is having severe weakness. He called the ambulance because he could not get out of his chair. Weakness has been progressing over several days. Having fevers and chills. Always on oxygen and has some shortness of breath, but does not feel more short of breath than usual. He is having abdominal pain and distention. He says he has not had a bowel movement in 2 weeks. He has been urinating without pain or difficulty. He has been sweaty. No nausea or vomiting. No chest pain. Allergies: Coded Allergies: hydromorphone (Verified Adverse Reaction, Severe, BODY JERKS UNCONTROLLABLY, 10/23/17) Home Meds Reported Medications Oxygen (OXYGEN) Inha, 4 L INH continuous, L 10/23/17 Rivaroxaban 20 Mg (XARELTO 20 MG) 20 Mg Tablet, 20 MG PO QPM, TAB 10/23/17 Levothyroxine Sodium (SYNTHROID) 50 Mcg Tablet, 50 MCG PO QDAY, TAB 05/22/17 Glipizide (GLIPIZIDE XL) 2.5 Mg Tab.er.24, 2.5 MG PO QAM 05/22/17 Metaxalone (METAXALONE) 800 Mg Tablet, 800 MG PO QHS 05/22/17 Omeprazole (OMEPRAZOLE) 20 Mg Capsule.dr, 1 CAP PO QDAY, CAP 05/22/17 Lisinopril (LISINOPRIL) 10 Mg Tablet, 10 MG PO QDAY, TAB 04/10/17 Meloxicam (MELOXICAM) 15 Mg Tablet, 15 MG PO QDAY 04/10/17 Atorvastatin Calcium (LIPITOR) 40 Mg Tablet, 2 TAB PO QDAY, TAB 04/10/17 Metoprolol Tartrate (METOPROLOL TARTRATE) 50 Mg Tab, 1 TAB PO QAM, TAB 01/11/13 Insulin Aspart (NOVOLOG) 100 Unit/1 Ml Cartridge, UNIT SQ TID PER SS 01/11/13 Insulin Detemir (LEVEMIR) 100 Unit/Ml Injs, 90 UNIT SUBQ BID 01/11/13 Lansoprazole (PREVACID) 30 Mg Capsule.dr, 30 MG PO QHS, #5 MG TAKE ONE CAPSULE BY MOUTH EVERY DAY 01/11/13 Duloxetine Hcl (CYMBALTA) 30 Mg Capsule.dr, 30 MG PO QAM 08/11/12 Modafinil (Provigil) 100 Mg Tab, 200 MG PO QAM 04/27/11 Finasteride (Proscar) 5 Mg Tab, 5 MG PO QHS, 0 Refills 10/31/10 Terazosin Hcl (Hytrin) 5 Mg Capsule, 5 MG PO QHS, 0 Refills 10/31/10 Furosemide (Furosemide) 40 Mg Tablet, 40 MG PO QAM, 0 Refills 10/31/10 Sitagliptin Phos/Metformin Hcl (Janumet 50-1,000 Mg Tablet) 1 Udtab Tablet, 2 UDTAB PO QAM, 0 Refills 10/31/10 Gabapentin (Neurontin) 600 Mg Tablet, 600 MG PO PRN, 0 Refills DOSEAGE CHANGES ACCORDING TO NEED (PER PATIENT) 10/31/10 Discontinued Reported Medications Benzonatate 100 Mg Cap (TESSALON PERLE 100 MG CAP) 100 Mg Capsule, 200 MG PO TID , #15 CAP 05/22/17 Doxycycline Hyclate (DOXYCYCLINE HYCLATE) 100 Mg Tablet.dr, 100 MG PO BID 05/22/17 Doxycycline Hyclate (DOXYCYCLINE HYCLATE) 100 Mg Capsule, 100 MG PO BID, CAPSULE 05/22/17 Rivaroxaban 20 Mg (XARELTO 20 MG) 20 Mg Tablet, 20 MG PO DAILY, TAB 04/10/17 Discontinued Scripts Albuterol Sulfate 0.083% (ALBUTEROL SULFATE 0.083%) 2.5 Mg/3 Ml Vial.neb, 2.5 MG INH Q6H for cough, #1 BOX 0 Refills Prov:EMMA ROMANO MD 05/22/17 Promethazine HCl/Codeine (Promethazine-Codeine Syrup) 6.25 Mg-10 Mg/5 Ml Syrup, 5 ML PO Q6H for cough, #120 ML 0 Refills Prov:EMMA ROMANO MD 05/22/17 Reviewed Nurses Notes: Yes Hx Smoking: No Hx Substance Use Disorder: No Hx Alcohol Use: No Constitutional Vital Sign - Last 24 Hours 10/23/17 10/23/17 10/23/17 10/23/17 20:57 21:00 21:06 21:21 Temp 100.4 Pulse 102 101 101 Resp 20 23 18 B/P (MAP) 101/89 111/56 (74) Pulse Ox 91 O2 Delivery Nasal Cannula 10/23/17 10/23/17 10/23/17 10/23/17 21:36 21:51 22:21 22:36 Pulse 96 97 94 99 Resp 38 19 25 B/P (MAP) 119/59 (79) Pulse Ox 93 93 92 92 10/23/17 10/23/17 10/23/17 10/23/17 22:41 22:51 22:56 23:00 Pulse 100 97 Resp 18 B/P (MAP) 104/53 (70) Pulse Ox 93 92 O2 Flow Rate 3.0 10/23/17 10/23/17 10/23/17 10/23/17 23:05 23:20 23:30 23:35 Pulse 94 92 93 Resp 17 9 18 B/P (MAP) 110/55 (73) Pulse Ox 91 93 93 Physical Exam General Appearance: The patient is alert. Very weak, but no acute distress. Ill appearing. Eyes: Pupils are equal, round. No pallor, injection or icterus. ENT: Mucous membranes are moist. Normal oral mucosa. Posterior oropharynx is normal. Respiratory: Lungs are clear to auscultation. There are no retractions or accessory muscle use. Oxygen at 4 liters by nasal canula. Cardiovascular: Mild tachycardia, regular rhythm. No murmurs, gallops or rubs. Normal capillary refill. 1+ pitting edema bilateral lower extremities. Gastrointestinal: Abdomen is soft, but diffusely uncomfortable to palpation. Obese and distended. Guarding but without rebound. Hypoactive bowel sounds. Neurological: Alert and oriented x3. No focal weakness, but general weakness is significant. Skin: Warm and diaphoretic. Musculoskeletal: Extremities are nontender. DIFFERENTIAL DIAGNOSIS: After history and physical exam, differential diagnosis was considered for patient with generalized weakness, fever and signs of sepsis with mild tachycardia and sweats. He does have abdominal pain. Would need to look for urinary infectious cause or pulmonary infectious cause although the latter is felt to be less likely. Medical Decision Making Data Points Result Diagram: 10/23/17204410/23/175 Laboratory Hematology Test 10/23/17 20:45 10/23/17 23:49 Red Blood Count 4.27 M/uL (4.00-5.60) Mean Corpuscular Volume 91.7 fL (80.0-96.0) Mean Corpuscular Hemoglobin 31.9 pg (26.0-33.0) Mean Corpuscular Hemoglobin Concent 34.8 g/dL (32.0-36.0) Red Cell Distribution Width 13.5 % (11.5-14.5) Mean Platelet Volume 7.9 fL (7.2-11.1) Neutrophils (%) (Auto) 90.6 % (39.4-72.5) Lymphocytes (%) (Auto) 2.0 % (17.6-49.6) Monocytes (%) (Auto) 7.1 % (4.1-12.4) Eosinophils (%) (Auto) 0.2 % (0.4-6.7) Basophils (%) (Auto) 0.1 % (0.3-1.4) Nucleated RBC Relative Count (auto) 0.0 /100WBC Neutrophils # (Auto) 7.6 K/uL (2.0-7.4) Lymphocytes # (Auto) 0.2 K/uL (1.3-3.6) Monocytes # (Auto) 0.6 K/uL (0.3-1.0) Eosinophils # (Auto) 0.0 K/uL (0.0-0.5) Basophils # (Auto) 0.0 K/uL (0.0-0.1) Nucleated RBC Absolute Count (auto) 0.00 K/uL Sodium Level 135 mmol/L (137-145) Potassium Level 5.0 mmol/L (3.5-5.0) Chloride Level 97 mmol/L (98-107) Carbon Dioxide Level 26 mmol/L (22-30) Blood Urea Nitrogen 39 mg/dl (9-21) Creatinine 2.00 mg/dl (0.66-1.25) Glomerular Filtration Rate Calc 33.8 Random Glucose 182 mg/dl (75-110) Lactate 1.6 mmol/L (0.7-2.1) Calcium Level 9.6 mg/dl (8.4-10.2) Total Bilirubin 0.6 mg/dl (0.2-1.3) Aspartate Amino Transf (AST/SGOT) 51 U/L (0-35) Alanine Aminotransferase (ALT/SGPT) 42 U/L (0-56) Alkaline Phosphatase 144 U/L (0-126) Total Protein 7.1 g/dl (6.3-8.2) Albumin 4.2 g/dl (3.5-5.0) Urine Color Radha Urine Clarity Cloudy Urine pH 5.0 pH (4.8-9.5) Urine Specific Gaines 1.017 Urine Protein Negative mg/dL (NEGATIVE) Urine Glucose (UA) Negative mg/dL (NEGATIVE) Urine Ketones Negative mg/dL (NEGATIVE) Urine Blood Negative (NEGATIVE) Urine Nitrite Positive (NEGATIVE) Urine Bilirubin Negative (NEGATIVE) Urine Urobilinogen 2.0 mg/dL (0.2-1.9) Urine Leukocyte Esterase Large (NEGATIVE) Urine RBC 7 /HPF (0-2/HPF) Urine WBC 172 /HPF (0-5/HPF) Urine WBC Clumps Mod /HPF Urine Squamous Epithelial Cells Few /LPF (</=FEW) Urine Transitional Epithelial Cells Many /LPF (NONE-FEW) Urine Bacteria Moderate /HPF (NONE-FEW) Urine Hyaline Casts Few /LPF (NONE-FEW) Urine Mucus None /HPF (NONE-FEW) Chemistry Test 10/23/17 20:45 10/23/17 23:49 White Blood Count 8.4 k/uL (4.5-11.0) Red Blood Count 4.27 M/uL (4.00-5.60) Hemoglobin 13.6 g/dL (14.0-18.0) Hematocrit 39.2 % (42.0-52.0) Mean Corpuscular Volume 91.7 fL (80.0-96.0) Mean Corpuscular Hemoglobin 31.9 pg (26.0-33.0) Mean Corpuscular Hemoglobin Concent 34.8 g/dL (32.0-36.0) Red Cell Distribution Width 13.5 % (11.5-14.5) Platelet Count 209 K/uL (150-450) Mean Platelet Volume 7.9 fL (7.2-11.1) Neutrophils (%) (Auto) 90.6 % (39.4-72.5) Lymphocytes (%) (Auto) 2.0 % (17.6-49.6) Monocytes (%) (Auto) 7.1 % (4.1-12.4) Eosinophils (%) (Auto) 0.2 % (0.4-6.7) Basophils (%) (Auto) 0.1 % (0.3-1.4) Nucleated RBC Relative Count (auto) 0.0 /100WBC Neutrophils # (Auto) 7.6 K/uL (2.0-7.4) Lymphocytes # (Auto) 0.2 K/uL (1.3-3.6) Monocytes # (Auto) 0.6 K/uL (0.3-1.0) Eosinophils # (Auto) 0.0 K/uL (0.0-0.5) Basophils # (Auto) 0.0 K/uL (0.0-0.1) Nucleated RBC Absolute Count (auto) 0.00 K/uL Glomerular Filtration Rate Calc 33.8 Lactate 1.6 mmol/L (0.7-2.1) Calcium Level 9.6 mg/dl (8.4-10.2) Total Bilirubin 0.6 mg/dl (0.2-1.3) Aspartate Amino Transf (AST/SGOT) 51 U/L (0-35) Alanine Aminotransferase (ALT/SGPT) 42 U/L (0-56) Alkaline Phosphatase 144 U/L (0-126) Total Protein 7.1 g/dl (6.3-8.2) Albumin 4.2 g/dl (3.5-5.0) Urine Color Radha Urine Clarity Cloudy Urine pH 5.0 pH (4.8-9.5) Urine Specific Gaines 1.017 Urine Protein Negative mg/dL (NEGATIVE) Urine Glucose (UA) Negative mg/dL (NEGATIVE) Urine Ketones Negative mg/dL (NEGATIVE) Urine Blood Negative (NEGATIVE) Urine Nitrite Positive (NEGATIVE) Urine Bilirubin Negative (NEGATIVE) Urine Urobilinogen 2.0 mg/dL (0.2-1.9) Urine Leukocyte Esterase Large (NEGATIVE) Urine RBC 7 /HPF (0-2/HPF) Urine WBC 172 /HPF (0-5/HPF) Urine WBC Clumps Mod /HPF Urine Squamous Epithelial Cells Few /LPF (</=FEW) Urine Transitional Epithelial Cells Many /LPF (NONE-FEW) Urine Bacteria Moderate /HPF (NONE-FEW) Urine Hyaline Casts Few /LPF (NONE-FEW) Urine Mucus None /HPF (NONE-FEW) Urinalysis Test 10/23/17 23:49 Urine Color Radha Urine Clarity Cloudy Urine pH 5.0 pH (4.8-9.5) Urine Specific Gaines 1.017 Urine Protein Negative mg/dL (NEGATIVE) Urine Glucose (UA) Negative mg/dL (NEGATIVE) Urine Ketones Negative mg/dL (NEGATIVE) Urine Blood Negative (NEGATIVE) Urine Nitrite Positive (NEGATIVE) Urine Bilirubin Negative (NEGATIVE) Urine Urobilinogen 2.0 mg/dL (0.2-1.9) Urine Leukocyte Esterase Large (NEGATIVE) Urine RBC 7 /HPF (0-2/HPF) Urine WBC 172 /HPF (0-5/HPF) Urine WBC Clumps Mod /HPF Urine Squamous Epithelial Cells Few /LPF (</=FEW) Urine Transitional Epithelial Cells Many /LPF (NONE-FEW) Urine Bacteria Moderate /HPF (NONE-FEW) Urine Hyaline Casts Few /LPF (NONE-FEW) Urine Mucus None /HPF (NONE-FEW) EKG/Imaging Imaging INDICATION: fever. Cough and chest pressure x4 days DATE: 10/23/2017 10:23 PM. TECHNIQUE: CHEST SINGLE AP COMPARISON: Chest radiographs April 09, 2016 FINDINGS: Heart size is normal. There is mild bibasilar atelectasis. No focal consolidation. IMPRESSION: Mild bibasilar atelectasis. Report Dictated By: Dorene Can MD at 10/23/2017 10:23 PM EXAMINATION: CT abdomen without IV contrast CT pelvis without IV contrast HISTORY: Abdominal pain and fever. COMPARISON: 05/08/2015 TECHNIQUE: Axial images were taken through the abdomen and pelvis without intravenous contrast. Sagittal and coronal reformatted images are also submitted. One of the following dose optimization techniques was utilized in the performance of this exam: Automated exposure control; adjustment of the mA and/ or kV according to the patient's size; or use of an iterative reconstruction technique. Specific details can be referenced in the facility's radiology CT exam operational policy. FINDINGS: Please note that without intravenous contrast, sensitivity to detection of parenchymal disease is limited. Liver/biliary: Mild diffuse hypoattenuation of the liver parenchyma. The gallbladder is unremarkable. Pancreas: Mild atrophy of the pancreas. Spleen: Negative. Adrenal glands: Negative. Kidneys: A few cysts in the kidneys, similar to previous examination. No hydronephrosis. Pelvic structures: The prostate is enlarged, measuring 5.4 cm in transverse dimension and mildly indents the base of the urinary bladder. Bowel: Colonic diverticulosis without evidence of diverticulitis. Normal appendix. Small sliding hiatal hernia. There are multiple dilated loops of small bowel, measuring up to 4.7 cm in diameter with transition point to nondilated small bowel at the ventral hernia which contains loops of small bowel. Peritoneum/retroperitoneum/mesenteries: No intraperitoneal free air or free fluid. Vessels: Mild calcified plaque of the aorta and iliac arteries. Musculoskeletal/body wall: Infraumbilical ventral hernia containing loops of small bowel. There is stranding in the subcutaneous soft tissues in the anterior abdominal wall, more on the left and in the periumbilical region, similar to previous examination, but mildly increased. Multilevel disc and facet degenerative changes in the thoracolumbar spine. Lymph node assessment: Negative. Lower chest: Sublobar atelectasis in the left lower lobe and scattered subsegmental atelectasis elsewhere in the lung bases. There is a cyst or pneumatocele in the left upper lobe measuring 3 cm. A 3.5 mm nodule in the right lower lobe is unchanged since 05/08/2015. IMPRESSION: Small bowel obstruction with transition point in the infraumbilical ventral hernia. Diffuse hepatic steatosis. Multiple chronic findings as detailed in the body of the report. These findings of small bowel obstruction were discussed with FIDELINA SMITH at 10:45 PM. Report Dictated By: Maximiliano Chin MD at 10/23/2017 10:28 PM ED Course/Re-evaluation Clinical Indication for ER IV: Hydration, IV Access ED Course Labs show a normal white blood cell count, but with a left shift. Lactate was negative. Renal insufficiency present. Chest x-ray was negative for pulmonary infectious process. CT scan of abdomen and pelvis without contrast was obtained and shows a small bowel obstruction with transition point in the ventral abdominal hernia. Discussed with dr. Rausch, general surgery. Also talked with Dr. Tang, hospitalist who will be consulting based on other medical problems. Started the patient on Zosyn, cultures of blood and urine obtained. Urinalysis shows changes consistent with urinary tract infection as well. NG tube placed in the ER for initial non-surgical management. Decision to Disposition Date: Oct 23, 2017 Decision to Disposition Time: 23:00 Depart Departure Latest Vital Signs Vital Signs Date Time Temp Pulse Resp B/P (MAP) Pulse Ox O2 Delivery O2 Flow Rate FiO2 10/23/17 23:35 93 18 93 10/23/17 23:30 110/55 (73) 10/23/17 22:51 3.0 10/23/17 20:57 100.4 Nasal Cannula Impression: Primary Impression: Small bowel obstruction Additional Impression: Hernia, ventral, with obstruction Condition: Condition Unchanged Disposition: Admitted from ER Referrals: LAMINE JAMA DO (PCP) Problem Qualifiers FIDELINA SMITH MD Oct 23, 2017 21:08
[2017-10-23 21:25] LABS: PLATELET COUNT, AUTOMATED 209 K/uL (150-450)
[2017-10-23] MEDS ORDERED: IOPAMIDOL 76% 75 ML INFUS BTL 0 ML ONE (21:28)
[2017-10-23] MEDS ORDERED: NS(*) 0.9% 1000 ML BAG 1,000 ML IV ONE ×2 (21:55→22:40)
--- NOTE | 2017-10-23 22:28 | RADIOLOGY IMAGING REPORT ---
FACILITY: [facility] - [place] PATIENT NAME: Jus Olivo : 1955 MR: [id number] V: [id number] EXAM DATE: [id number] ORDERING PHYSICIAN: FIDELINA SMITH TECHNOLOGIST: Location: [facility] - [place] Patient: Jus Olivo : 1955 Visit/Account:[id number] Date of Sevice: 10/23/2017 INDICATION: fever. Cough and chest pressure x4 days DATE: 10/23/2017 10:23 PM. TECHNIQUE: CHEST SINGLE AP COMPARISON: Chest radiographs April 09, 2016 FINDINGS: Heart size is normal. There is mild bibasilar atelectasis. No focal consolidation. IMPRESSION: Mild bibasilar atelectasis. Report Dictated By: Dorene Can MD at 10/23/2017 10:23 PM Report E-Signed By: Dorene Can MD at 10/23/2017 10:24 PM WSN:[id number]
--- NOTE | 2017-10-23 22:42 | EKG ---
[place]AC[place] [facility] [place]IENT NAME: TASHA PATHAK : [id number] MR: [id number] V: [id number] EXAM DATE: ORDERING PHYSICIAN: FIDELINA SMITH TECHNOLOGIST: LUIS ENRIQUE Villa Reason : Blood Pressure : / mmHG Vent. Rate : 102 BPM Atrial Rate : 102 BPM P-R Int : 158 ms QRS Dur : 076 ms QT Int : 310 ms P-R-T Axes : 061 -26 038 degrees QTc Int : 404 ms Sinus tachycardia Otherwise normal ECG When compared with ECG of 22-MAY-2017 13:23, Relatively unchanged except now tachycardic Confirmed by AMIE PEREZ ([id number]) on 10/24/2017 1:02:48 AM Referred By: Confirmed By:AMIE PEREZ
--- NOTE | 2017-10-23 22:52 | RADIOLOGY IMAGING REPORT ---
FACILITY: [facility] PATIENT NAME: Jus Olivo : 1955 MR: [id number] V: [id number] EXAM DATE: [id number] ORDERING PHYSICIAN: FIDELINA SMITH TECHNOLOGIST: Location: [facility] Patient: Jus Olivo : 1955 Visit/Account:[id number] Date of Sevice: 10/23/2017 EXAMINATION: CT abdomen without IV contrast CT pelvis without IV contrast HISTORY: Abdominal pain and fever. COMPARISON: 05/08/2015 TECHNIQUE: Axial images were taken through the abdomen and pelvis without intravenous contrast. Sag ittal and coronal reformatted images are also submitted. One of the following dose optimization techniques was utilized in the performance of this exam: Autom ated exposure control; adjustment of the mA and/or kV according to the patient's size; or use of an i terative reconstruction technique. Specific details can be referenced in the facility's radiology C T exam operational policy. FINDINGS: Please note that without intravenous contrast, sensitivity to detection of parenchymal disease is chaidez ited. Liver/biliary: Mild diffuse hypoattenuation of the liver parenchyma. The gallbladder is unremarkable. Pancreas: Mild atrophy of the pancreas. Spleen: Negative. Adrenal glands: Negative. Kidneys: A few cysts in the kidneys, similar to previous examination. No hydronephrosis. Pelvic structures: The prostate is enlarged, measuring 5.4 cm in transverse dimension and mildly i ndents the base of the urinary bladder. Bowel: Colonic diverticulosis without evidence of diverticulitis. Normal appendix. Small sliding hiat al hernia. There are multiple dilated loops of small bowel, measuring up to 4.7 cm in diameter with t ransition point to nondilated small bowel at the ventral hernia which contains loops of small bowel. Peritoneum/retroperitoneum/mesenteries: No intraperitoneal free air or free fluid. Vessels: Mild calcified plaque of the aorta and iliac arteries. Musculoskeletal/body wall: Infraumbilical ventral hernia containing loops of small bowel. There is st randing in the subcutaneous soft tissues in the anterior abdominal wall, more on the left and in the periumbilical region, similar to previous examination, but mildly increased. Multilevel disc and face t degenerative changes in the thoracolumbar spine. Lymph node assessment: Negative. Lower chest: Sublobar atelectasis in the left lower lobe and scattered subsegmental atelectasis elsew here in the lung bases. There is a cyst or pneumatocele in the left upper lobe measuring 3 cm. A 3.5 mm nodule in the right lower lobe is unchanged since 05/08/2015. IMPRESSION: Small bowel obstruction with transition point in the infraumbilical ventral hernia. Diffuse hepatic steatosis. Multiple chronic findings as detailed in the body of the report. These findings of small bowel obstruction were discussed with FIDELINA SMITH at 10/23/2017 10:45 PM. Report Dictated By: Maximiliano Chin MD at 10/23/2017 10:28 PM Report E-Signed By: Maximiliano Chin MD at 10/23/2017 10:48 PM WSN:[id number]
[2017-10-23] MEDS ORDERED: OXYGENHOME INH (23:01)
[2017-10-23] MEDS ORDERED: RIVA20TA PO (23:01)
[2017-10-24] VITALS (8 sets, daily range): BP systolic 103–158; BP diastolic 61–112
[2017-10-24] MEDS ORDERED: MORPHINE 2 MG/ML SYR IVP SCH
[2017-10-24] MEDS ORDERED: KCL 2 MEQ/ML 20 MEQ/10 ML VIAL 20 MEQ in NS 0.45%(*) 1000 ML BAG 1,000 ML IV SCH
[2017-10-24] MEDS ORDERED: MORPHINE 10 MG/ML SYR IVP SCH
[2017-10-24] MEDS: METOPROLOL TART 5 MG/5 ML VIAL IVP SCH ×6 (01:20→20:52)
--- NOTE | 2017-10-24 01:22 | Hospitalist Consultation ---
History of Present Illness Requesting Physician Shalom Reason for Consult Medication management History of Present Illness 62yo male who is morbidly obese, has T2DM, and h/o umbilical hernia repair (01/13) who came to the ER for abdominal pain, constipation, and weakness. He has had the symptoms for about a week. Eating seemed to make the stomach pain worse. His last BM was about 6 days ago and it was very hard. He manually disimpacted himself. He normally has about 1 BM per day. He denies n/v/cp/sob/ f/c. Today, he couldn't get out of a chair. History Problems: (1) History of umbilical hernia repair (2) HTN (hypertension) Status: Chronic (3) History of pulmonary embolism Status: Chronic (4) Morbid obesity (5) ALANNA (obstructive sleep apnea) (6) BPH (benign prostatic hyperplasia) Status: Chronic (7) GERD (gastroesophageal reflux disease) (8) Hyperlipemia (9) Chest pain Home Meds Reported Medications Oxygen (OXYGEN) Inha, 4 L INH continuous, L 10/23/17 Rivaroxaban 20 Mg (XARELTO 20 MG) 20 Mg Tablet, 20 MG PO QPM, TAB 10/23/17 Levothyroxine Sodium (SYNTHROID) 50 Mcg Tablet, 50 MCG PO QDAY, TAB 05/22/17 Glipizide (GLIPIZIDE XL) 2.5 Mg Tab.er.24, 2.5 MG PO QAM 05/22/17 Metaxalone (METAXALONE) 800 Mg Tablet, 800 MG PO QHS 05/22/17 Omeprazole (OMEPRAZOLE) 20 Mg Capsule.dr, 1 CAP PO QDAY, CAP 05/22/17 Lisinopril (LISINOPRIL) 10 Mg Tablet, 10 MG PO QDAY, TAB 04/10/17 Meloxicam (MELOXICAM) 15 Mg Tablet, 15 MG PO QDAY 04/10/17 Atorvastatin Calcium (LIPITOR) 40 Mg Tablet, 2 TAB PO QDAY, TAB 04/10/17 Metoprolol Tartrate (METOPROLOL TARTRATE) 50 Mg Tab, 1 TAB PO QAM, TAB 01/11/13 Insulin Aspart (NOVOLOG) 100 Unit/1 Ml Cartridge, UNIT SQ TID PER SS 01/11/13 Insulin Detemir (LEVEMIR) 100 Unit/Ml Injs, 90 UNIT SUBQ BID 01/11/13 Lansoprazole (PREVACID) 30 Mg Capsule.dr, 30 MG PO QHS, #5 MG TAKE ONE CAPSULE BY MOUTH EVERY DAY 01/11/13 Duloxetine Hcl (CYMBALTA) 30 Mg Capsule.dr, 30 MG PO QAM 08/11/12 Modafinil (Provigil) 100 Mg Tab, 200 MG PO QAM 04/27/11 Finasteride (Proscar) 5 Mg Tab, 5 MG PO QHS, 0 Refills 10/31/10 Terazosin Hcl (Hytrin) 5 Mg Capsule, 5 MG PO QHS, 0 Refills 10/31/10 Furosemide (Furosemide) 40 Mg Tablet, 40 MG PO QAM, 0 Refills 10/31/10 Sitagliptin Phos/Metformin Hcl (Janumet 50-1,000 Mg Tablet) 1 Udtab Tablet, 2 UDTAB PO QAM, 0 Refills 10/31/10 Gabapentin (Neurontin) 600 Mg Tablet, 600 MG PO PRN, 0 Refills DOSEAGE CHANGES ACCORDING TO NEED (PER PATIENT) 10/31/10 Discontinued Reported Medications Benzonatate 100 Mg Cap (TESSALON PERLE 100 MG CAP) 100 Mg Capsule, 200 MG PO TID , #15 CAP 05/22/17 Doxycycline Hyclate (DOXYCYCLINE HYCLATE) 100 Mg Tablet.dr, 100 MG PO BID 05/22/17 Doxycycline Hyclate (DOXYCYCLINE HYCLATE) 100 Mg Capsule, 100 MG PO BID, CAPSULE 05/22/17 Rivaroxaban 20 Mg (XARELTO 20 MG) 20 Mg Tablet, 20 MG PO DAILY, TAB 04/10/17 Discontinued Scripts Albuterol Sulfate 0.083% (ALBUTEROL SULFATE 0.083%) 2.5 Mg/3 Ml Vial.neb, 2.5 MG INH Q6H for cough, #1 BOX 0 Refills Prov:EMMA ROMANO MD 05/22/17 Promethazine HCl/Codeine (Promethazine-Codeine Syrup) 6.25 Mg-10 Mg/5 Ml Syrup, 5 ML PO Q6H for cough, #120 ML 0 Refills Prov:EMMA ROMANO MD 05/22/17 Allergies: Coded Allergies: hydromorphone (Verified Adverse Reaction, Severe, BODY JERKS UNCONTROLLABLY, 10/23/17) Hx Smoking: No Caffeine Intake: Coffee Caffeine/Cups Per Day: 24 oz per day Hx Alcohol Use: No Hx Substance Use Disorder: No Review of Systems All Systems Reviewed/Normal: Yes, Except as Noted Exam Vital Signs Vital Signs Date Time Temp Pulse Resp B/P (MAP) Pulse Ox O2 Delivery O2 Flow Rate FiO2 10/24/17 00:43 94 Nasal Cannula 3.0 10/24/17 00:26 98.2 93 12 130/72 (91) General Appearance: No Acute Distress (Appears sleepy) Neuro: Other (Answers questions appropriately. Knows the events that led him to the ER. Knows where he is.) ENT: Moist Mucous Membranes Cardiovascular: Regular Rate and Rhythm Respiratory: Clear to Auscultation GI: Other (Obese, non-tender, firm, vertical scar has palpable nodule under it. ) Extremities: Edema (2+ pitting in ankles bilaterally) Medical Decision Making Data Points Result Diagram: 10/23/17204410/23/172044 Item Value Date Time Creatinine 1.40 mg/dl H 05/22/17 1323 Creatinine 2.00 mg/dl H 10/23/172044 Total Bilirubin 0.6 mg/dl 10/23/172044 Aspartate Amino Transf (AST/SGOT) 51 U/L H 10/23/172044 Alanine Aminotransferase (ALT/SGPT) 42 U/L 10/23/172044 Alkaline Phosphatase 144 U/L H 10/23/172044 Neutrophils (%) (Auto) 90.6 % H 10/23/172044 Lymphocytes (%) (Auto) 2.0 % L 10/23/172044 Monocytes (%) (Auto) 7.1 % 10/23/172044 Urine Leukocyte Esterase Large H 10/23/172348 Urine RBC 7 /HPF 10/23/172348 Urine WBC 172 /HPF 10/23/172348 Urine WBC Clumps Mod /HPF 10/23/17 2349 Urine Transitional Epithelial Cells Many /LPF H 10/23/172348 Urine Bacteria Moderate /HPF H 10/23/179 Urine Squamous Epithelial Cells Few /LPF 10/23/179 Urine Nitrite Positive H 10/23/172348 EKG / Imaging EKG Interpretation Sinus tachycardia. No ST-T abnormalities and relatively unchanged from previous. Imaging CXR - Mild bibasilar atelectasis. CT of abd/pelvis - Small bowel obstruction with transition point in the infraumbilical ventral hernia. Diffuse hepatic steatosis. Multiple chronic findings as detailed in the body of the report. Assessment and Plan Problems: (1) Small bowel obstruction Status: Acute Assessment & Plan: He presented with about a week of constipation and abdominal pain. He has a SBO with a transition point in the infra umbilical ventral hernia. See surgery notes for details. (2) History of pulmonary embolism Status: Chronic Assessment & Plan: He has had two PE and is heterogeneous for two mutations. He chronically takes Xarelto in the evening. It is not clear if he took the dose the night he came to the ER. Will not start any anticoagulation at this time because of possible surgery. (3) T2DM (type 2 diabetes mellitus) Status: Chronic Assessment & Plan: He chronically take Levemir 90 units bid, Amaryl and Janumet. Will hold the oral medications and use only 45 units of the Levemir bid because of the poor intake. SSI level 3 to cover q6 hour glucose. (4) BPH (benign prostatic hyperplasia) Status: Chronic Assessment & Plan: Will hold his chronic terazosin and finasteride. (5) HTN (hypertension) Status: Chronic Assessment & Plan: Will hold his chronic oral metoprolol, furosemide and lisinopril. Will give scheduled IV metoprolol. (6) CKD (chronic kidney disease) stage 3, GFR 30-59 ml/min Status: Chronic Assessment & Plan: Baseline creatinine is 1.4. Today it is 2.0 likely from dehydration, so will follow. (7) Hypothyroid Status: Chronic Assessment & Plan: Will give IV levothyroxine while NPO. Copies to: BARTOLO CLARK IV, MD; LAMINE JAMA DO Venous Thromboembolism Antithrombotics Is Pt On Any Antithrombotics?: Yes Exam Sepsis Risk: No Definite Risk AMIE PEREZ MD Oct 24, 2017 01:22
[2017-10-24] MEDS ORDERED: ONDANSETRON 4 MG/2 ML VIAL IVP PRN (02:25)
[2017-10-24] MEDS ORDERED: KCL 2 MEQ/ML 20 MEQ/10 ML VIAL 20 MEQ in NS 0.45%(*) 1000 ML BAG 1,000 ML IV PRN (02:55)
[2017-10-24] MEDS ORDERED: KCL 2 MEQ/ML 20 MEQ/10 ML VIAL ONE (03:32)
[2017-10-24] MEDS ORDERED: NS 0.45%(*) 1000 ML BAG 1,000 ML ONE (03:40)
[2017-10-24] MEDS: PIPERACILLIN/TAZO*3.375GM VIAL 3.375 GM in NS(*) 0.9% 100 ML ADDVANT BAG 100 ML IVPB SCH ×3 (06:04→17:22)
[2017-10-24] MEDS: ACETAMINOPHEN(*)1000 MG/100 ML 100 ML IVPB PRN (07:29)
[2017-10-24] MEDS ORDERED: LEVOTHYROXINE SOD 100 MCG VIAL IVP SCH (09:00)
[2017-10-24] MEDS: INSULIN DETEMIR 100 U/ML 3 ML PEN SUBQ SCH ×2 (09:06→20:52)
[2017-10-24] MEDS: PANTOPRAZOLE SOD 40 MG IV VIAL IVP SCH (09:08)
[2017-10-24] MEDS: INSULIN HUM LISPRO 100 UN/ML 3 ML VIAL SUBQ PRN ×2 (11:45→17:35)
--- NOTE | 2017-10-24 13:07 | Medical Nutrition Therapy ---
Nutrition Anthropometrics Height (Inches): 69 (from previous admit) Weight (Pounds): 336 (stated) Weight (Calculated Kilograms): 152.407 BMI: 49.6 Moreno Nutrition Score: Adequate Moreno Nutrition Risk Score: 17 Dietary Referral Nutrition Risk Factors: Nutrition Risk Comment: Physical Findings Physical Appearance: Morbidly Obese 40+ Skin Appearance Skin Appearance: Edema Edema Location Modifier: Both Edema Location: Leg Type of Edema: Degree of Edema: Gastrointestinal Symptoms GI Symtoms: Appetite Changes, Change in Bowel Pattern Tube Present: NG Bowel Sounds: Recent Bowel Pattern: Constipated, No Bowel Movement Stool Characteristics: Nutritional Diagnosis Nutritional Risk Acuity 2: Chronic Renal Failure, GI Malabsorption Past Medical History: CKD-3, hypothyroid, T2DM Nutritional Acuity: 2-Moderate Nutrition Diagnosis: Altered GI Function Nutrition Etiology: Physiological Causes Nutrition Problem/Etiology/Sym: AEB dx BBO Adjusted Energy Requirement Re: 2300 (H-B adj for obesity) Protein Requirement: 90 (1gm/kg adj wt) Fluid Requirement: 2300 (1ml/kg) Diet Type: NPO (Nothing by Mouth) Nutrition Intervention: Incr diet as tolerated Nutrition Monitoring & Eval Nutrition Goals: Eat 75-100% Meal RD Patient Assessment Time: [address] Assessment Type: RD Assessment Patient Nutrition Acuity: 2-Moderate Follow Up Date: Oct 27, 2017 Nutritional Comment: 10/24 Pt admitted for SBO. Pt has dx T2DM with CKD-3. BUN 39, creatinine 2, alb WNR at 4.2., BG ranging 149- 232. Pt currntly NPO. Will cont to monitor. SARITA COLLINS Oct 24, 2017 13:07
--- NOTE | 2017-10-24 13:22 | Miscellaneous Provider Note ---
Miscellaneous Provider Note Note Urine culture growing a gram negative marcus at > 100,000 col/HPF. Continue Zosyn while awaiting ID and sensitivity. Will modify antibiotics as needed based on culture results. MERLE VELASCO MD Oct 24, 2017 13:22
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
[2017-10-24] MEDS: KCL 2 MEQ/ML 20 MEQ/10 ML VIAL 20 MEQ in NS 0.45%(*) 1000 ML BAG 1,000 ML IV SCH (14:09)
[2017-10-24] MEDS ORDERED: GABAPENTIN 300 MG CAP PO ONE (23:30)
[2017-10-25] MEDS: PIPERACILLIN/TAZO*3.375GM VIAL 3.375 GM in NS(*) 0.9% 100 ML ADDVANT BAG 100 ML IVPB SCH ×2 (00:18→06:18)
[2017-10-25] MEDS: METOPROLOL TART 5 MG/5 ML VIAL IVP SCH ×3 (01:00→08:05)
[2017-10-25] MEDS: ACETAMINOPHEN(*)1000 MG/100 ML 100 ML IVPB PRN ×2 (01:19→08:16)
[2017-10-25] MEDS ORDERED: GABAPENTIN 300 MG CAP PO ONE (02:10)
[2017-10-25 03:14] VITALS: BP 124/72
[2017-10-25] MEDS: KCL 2 MEQ/ML 20 MEQ/10 ML VIAL 20 MEQ in NS 0.45%(*) 1000 ML BAG 1,000 ML IV SCH ×2 (03:57→08:04)
[2017-10-25 05:07] VITALS: BP 111/65
[2017-10-25 07:50] VITALS: BP 120/61
[2017-10-25 08:09] LABS: PLATELET COUNT, AUTOMATED 171 K/uL (150-450)
[2017-10-25] MEDS: PANTOPRAZOLE SOD 40 MG IV VIAL IVP SCH (08:16)
[2017-10-25] MEDS: INSULIN DETEMIR 100 U/ML 3 ML PEN SUBQ SCH (08:16)
[2017-10-25] MEDS: LEVOTHYROXINE SOD 100 MCG VIAL IVP SCH ×2 (09:00→11:49)
[2017-10-25] MEDS ORDERED: LEVOFLOXACIN 500 MG TAB PO SCH (10:00)
--- NOTE | 2017-10-25 11:20 | Hospitalist Progress Note ---
Subjective Progress Notes Subjective He reports doing well. Urine culture is growing E. coli. Physical Exam Vital Signs Date Time Temp Pulse Resp B/P (MAP) Pulse Ox O2 Delivery O2 Flow Rate FiO2 10/25/17 07:50 97.9 64 22 120/61 (80) 93 Nasal Cannula 5.0 Intake and Output 10/26/17 07:00 Intake Total 400 ml Output Total 475 ml Balance -75 ml IV Total 400 ml Output Urine Total 475 ml General Appearance: Alert, Awake Cardiovascular: Regular Rate and Rhythm Respiratory: Clear to Auscultation Result Diagram: 10/25/17 0758 10/25/17 0758 Assessment and Plan Problems: (1) Small bowel obstruction Status: Acute Assessment & Plan: He presented with about a week of constipation and abdominal pain. He has a SBO with a transition point in the infra umbilical ventral hernia. See surgery notes for details. (2) History of pulmonary embolism Status: Chronic Assessment & Plan: He has had two PE and is heterogeneous for two mutations. He chronically takes Xarelto in the evening. He will resume his usual medication regimen. (3) T2DM (type 2 diabetes mellitus) Status: Chronic Assessment & Plan: He chronically take Levemir 90 units bid, Amaryl and Janumet. Will resume his usual medications. (4) BPH (benign prostatic hyperplasia) Status: Chronic Assessment & Plan: Will resume his chronic terazosin and finasteride. (5) HTN (hypertension) Status: Chronic Assessment & Plan: Will continue his chronic oral metoprolol, furosemide and lisinopril. (6) CKD (chronic kidney disease) stage 3, GFR 30-59 ml/min Status: Chronic Assessment & Plan: Baseline creatinine is 1.4. Today it is 1.4 (yesterday 2.0) . (7) Hypothyroid Status: Chronic Assessment & Plan: Will resume his usual oral levothyroxine. (8) UTI (urinary tract infection) Status: Acute Assessment & Plan: Due to E. coli. Will transition to oral Levaquin. He will need 10 days of therapy. Follow up with primary care in next 5-10 days. Exam Sepsis Risk: No Definite Risk HANNAH VELASCO MD Oct 25, 2017 11:20
[2017-10-25] MEDS ORDERED: RIVAROXABAN 10 MG TAB PO SCH (11:50)
[2017-10-25] MEDS ORDERED: GABAPENTIN 300 MG CAP PO SCH (14:00)
[2017-10-25] MEDS ORDERED: GLIM2TAB43 PO (15:41)
[2017-10-25] MEDS ORDERED: LEVO-85 PO (15:41)
[2017-10-25] MEDS ORDERED: metFORMIN HCL 500 MG TAB PO SCH (17:00)
[2017-10-25] MEDS ORDERED: LANSOPRAZOLE 15 MG CAPCR PO SCH (21:00)
[2017-10-25] MEDS ORDERED: TERAZOSIN HCL 1 MG CAP PO SCH (21:00)
[2017-10-25] MEDS ORDERED: FINASTERIDE 5 MG TAB PO SCH (21:00)
[2017-10-26] MEDS ORDERED: LEVOTHYROXINE SOD 0.05 MG TAB PO SCH (06:00)
--- NOTE | 2017-10-26 07:48 | PROGRESS NOTE ---
DATE: October 25, 2017 SUBJECTIVE Patient reports that he feels much better than yesterday. He is hungry. He is having no abdominal pain. PHYSICAL EXAMINATION VITAL SIGNS: Temperature 97.9, pulse rate 64, respiratory rate 22, blood pressure 120/61, 02 saturation 93% on 5-liters nasal cannula. GENERAL: The patient looks much better than he did yesterday. He is in no acute distress and appears to be in no discomfort. LUNGS: Clear to auscultation bilaterally. CARDIAC: Heart has regular rate and rhythm. without tachycardia. ABDOMEN: Bowel sounds are positive. Abdomen is obese. It is soft and nontender. LABORATORY STUDIES WBC this morning is 5.9 with 75.4% neutrophils. H/H is 11.8/34.0. CMP shows the following abnormalities: Sodium 136, BUN 29, creatinine 1.4. Random glucose of 132. AST of 57. Total protein is 5.5 and albumin 3.2. It is noted that the BUN and creatinine are improved from patient's admission values. The urine culture is growing out E. coli which is sensitive to oral antibiotics. ASSESSMENT Stable and much improved. The small bowel obstruction has resolved. The patient's UTI is responding well to the antibiotics. PLAN The patient will be started on clear liquids with diet advanced as tolerated. His antibiotics will be switched from IV to oral. If he is able to tolerate diet well, he can be discharged later today. TOBI
[2017-10-26] MEDS ORDERED: LISINOPRIL 10 MG TAB PO SCH (09:00)
[2017-10-26] MEDS ORDERED: ATORVASTATIN 40 MG TAB PO SCH (09:00)
[2017-10-26] MEDS ORDERED: DULoxetine HCL 30 MG CAPCR PO SCH (09:00)
[2017-10-26] MEDS ORDERED: glipiZIDE XL 2.5 MG TABCR PO SCH (09:00)
[2017-10-26] MEDS ORDERED: METOPROLOL TART 50 MG TAB PO SCH (09:00)
[2017-10-26] MEDS ORDERED: MODAFINIL 100 MG TAB PO SCH (09:00)
[2017-10-26] MEDS ORDERED: GLIMEPIRIDE 2 MG TAB PO SCH (09:00)
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
== END 2017-10-25 16:00 | disposition home or self-care (01) | DRG 394 ==
LOC: ER 21:01 → OR 23:52 → MED 10-24 01:52
PROVIDERS: ADMIT Surgery; ATTEND Surgery
DX: K43.6 Other and unspecified ventral hernia with obstruction, without gangrene (principal); K56.609 Unspecified intestinal obstruction, unspecified as to partial versus complete obstruction; Z68.42 Body mass index [BMI] 45.0-49.9, adult; N39.0 Urinary tract infection, site not specified; E66.01 Morbid (severe) obesity due to excess calories; G47.33 Obstructive sleep apnea (adult) (pediatric); N40.0 Benign prostatic hyperplasia without lower urinary tract symptoms; K59.00 Constipation, unspecified; K21.9 Gastro-esophageal reflux disease without esophagitis; E78.5 Hyperlipidemia, unspecified; E11.22 Type 2 diabetes mellitus with diabetic chronic kidney disease; I12.9 Hypertensive chronic kidney disease with stage 1 through stage 4 chronic kidney disease, or unspecified chronic kidney disease; N18.3 Chronic kidney disease, stage 3 (moderate); B96.20 Unspecified Escherichia coli [E. coli] as the cause of diseases classified elsewhere; J98.4 Other disorders of lung; E03.9 Hypothyroidism, unspecified; Z86.711 Personal history of pulmonary embolism; Z99.81 Dependence on supplemental oxygen; Z88.5 Allergy status to narcotic agent; Z79.4 Long term (current) use of insulin; Z79.84 Long term (current) use of oral hypoglycemic drugs; Z79.01 Long term (current) use of anticoagulants
CPT/HCPCS: 36415; 36416; 71045; 74176; 81001; 82040; 82247; 82310; 82374; 82435; 82565; 82947; 82948; 83605; 84075; 84132; 84155; 84295; 84450; 84460; 84520; 85025; 87040; 87077; 87088; 87186; 93005; 96360; 99284; A9270; C9113; J0131; J1815; J2270; J2543; J3480; J3490; J7030; J7050; Q9967

== ENCOUNTER → 2017-10-23 | Outpatient (CLI) | payer OTHER, MEDICARE ==
[~2017-10-23] MED LIST changes: +ALBU2.5V36 INH; +BENZ100C4 PO; +CODE118S5 PO; +DOXY-181 PO; +DOXY-228 PO; +GLIM2TAB43 PO; +GLIP2.5T3 PO; +LEVO-85 PO; +LEVO50TA80 PO; +META-1 PO; +OMEP-125 PO; +OXYGENHOME INH
== END ==
LOC: AMB 20:21
PROVIDERS: ATTEND Nurse Practitioner
DX: R53.1 Weakness (principal); K59.00 Constipation, unspecified; R53.83 Other fatigue; R61 Generalized hyperhidrosis
CPT/HCPCS: A0425; A0427

== ENCOUNTER → 2017-11-30 | Outpatient (CLI) | payer OTHER, MEDICARE ==
[~2017-11-30] MED LIST changes: +GLIM2TAB43 PO; +LEVO-85 PO; +OXYGENHOME INH
--- NOTE | 2017-11-30 12:51 | EKG ---
FACILITY: [facility] PATIENT NAME: TASHA PATHAK : [id number] MR: [id number] V: [id number] EXAM DATE: ORDERING PHYSICIAN: NOREEN MCCAIN TECHNOLOGIST: GALEN Villa Reason : PRE-OP Blood Pressure : / mmHG Vent. Rate : 060 BPM Atrial Rate : 060 BPM P-R Int : 164 ms QRS Dur : 082 ms QT Int : 394 ms P-R-T Axes : 056 -20 028 degrees QTc Int : 394 ms Normal sinus rhythm Normal ECG No previous ECGs available Confirmed by JUS FONG ([id number]) on 11/30/2017 3:03:11 PM Referred By: ADÁN Confirmed By:JUS FONG
== END ==
LOC: RESP 11:37
PROVIDERS: ATTEND Surgery
DX: Z02.9 Encounter for administrative examinations, unspecified (principal)

== ENCOUNTER 2017-12-31 01:24 | Inpatient (IN) | payer OTHER, MEDICARE ==
[2017-12-31] VITALS (7 sets, daily range): BP systolic 114–153; BP diastolic 52–76
[~2017-12-31] VITALS: Ht 152.4 cm; Wt 151.0 kg
[2017-12-31] MEDS ORDERED: fentaNYL CITR 250 MCG/5 ML AMP ONE (07:39)
[2017-12-31] MEDS ORDERED: PROPOFOL EMUL(*) 10MG/ML 20 ML 40 ML ONE (07:40)
[2017-12-31] MEDS ORDERED: ONDANSETRON 4 MG/2 ML VIAL ONE (07:40)
[2017-12-31] MEDS ORDERED: LIDOCAINE MPF 1% 5 ML VIAL ONE (07:40)
[2017-12-31] MEDS ORDERED: KETAMINE HCL 200 MG/20 ML MDV ONE ×2 (07:45→09:53)
[2017-12-31] MEDS ORDERED: MIDAZOLAM 2 MG/2 ML VIAL IVP PRN (07:50)
[2017-12-31] MEDS ORDERED: PREGABALIN 150 MG CAPSULE PO ONE (07:50)
[2017-12-31] MEDS ORDERED: NORMOSOL R SOLN(*) 1000 ML BAG 1,000 ML IV PRN (07:50)
[2017-12-31] MEDS ORDERED: ceFAZolin(*) 1 GM VIAL 3 GM in NS(*) 0.9% 100 ML BAG 100 ML IVPB ONE (07:50)
[2017-12-31] MEDS ORDERED: ACETAMINOPHEN 500 MG TAB PO ONE (07:50)
[2017-12-31] MEDS ORDERED: LIDOCAINE/SOD BICARB 8.4% SYR ID ONE (07:50)
[2017-12-31 08:01] LABS: INR 1.08
[2017-12-31] MEDS ORDERED: ROPIVACAINE 0.5% 20 ML VIAL ONE (08:29)
[2017-12-31] MEDS ORDERED: INSULIN DETEMIR 100 UN/ML VIAL SUBQ PRN (08:30)
[2017-12-31] MEDS ORDERED: LIDO/EPI 1% MDV 1:100,000 20ML INFIL ONE (08:33)
[2017-12-31] MEDS ORDERED: INSULIN ASPART 100 UN/ML VIAL SUBQ ONE (08:45)
[2017-12-31] MEDS ORDERED: ROCURONIUM BROM 10 MG/ML 10 ML ONE (09:07)
[2017-12-31] MEDS ORDERED: NS 0.9% 20 ML SDV 20 ML ONE (09:16)
[2017-12-31] MEDS ORDERED: SUGAMMADEX SOD 500 MG/5 ML SDV ONE (09:59)
[2017-12-31] MEDS ORDERED: FLUSH 10 ML SYR IVP PRN (12:30)
[2017-12-31] MEDS ORDERED: NALOXONE HCL 0.4 MG/ML VIAL IVP PRN (12:30)
[2017-12-31] MEDS: GABAPENTIN 300 MG CAP PO SCH ×4 (12:30→21:27)
[2017-12-31] MEDS ORDERED: ONDANSETRON 4 MG/2 ML VIAL IVP PRN (12:30)
[2017-12-31] MEDS ORDERED: HYDROmorphone PCA 6 MG/30 ML IV PRN (12:30)
[2017-12-31] MEDS ORDERED: fentaNYL CITR 100 MCG/2 ML AMP ONE ×2 (12:43→13:10)
--- NOTE | 2017-12-31 12:43 | Post Operative Progress Note ---
Post Operative Progress Note Date: Dec 31, 2017 Time: 12:34 Surgeon: Vicki Dictation number: [id number] Anesthesia: GETA by Dr. Jones Pre-Op Diagnosis: 1) subcutaneous mass, back 2) Ventral hernia Post-Op Diagnosis: VARGAS Findings: Back mass c/w lipoma 5-7cm fascial defect just below umbilicus in midline Procedure(s): 1) Excision of subcutaneous mass from back 2) Robotic VH repair with [id number] piece of duomesh Specimen Removed:(May be N/A): None Complications: None Fluids: See anesthesia record Estimated Blood Loss: Minimal Date OP Note Dictated: Dec 31, 2017 Time OP Note Dictated: 12:36 NOREEN MCCAIN MD Dec 31, 2017 12:43
[2017-12-31] MEDS ORDERED: MORPHINE 1 MG/ML 30 ML PCA IV PRN (13:05)
--- NOTE | 2017-12-31 14:25 | OPERATIVE REPORT 1 ---
EVENT DATE: December 31, 2017 SURGEON: Myke Cohen M.D. ANESTHESIOLOGIST: Prakash Jones MD ANESTHESIA: General endotracheal. PREOPERATIVE DIAGNOSIS 1. Large subcutaneous mass on back. 2. Infraumbilical ventral hernia. POSTOPERATIVE DIAGNOSIS 1. Large subcutaneous mass on back. 2. Infraumbilical ventral hernia. PROCEDURE PERFORMED 1. Excision of subcutaneous mass from back. 2. Robotic ventral hernia repair with mesh. COMPLICATIONS None. CONDITION Stable. ESTIMATED BLOOD LOSS Minimal. INDICATIONS This is a 62-year-old gentleman who has a large mass on his upper mid back that he would like to have removed and he also has been having some infraumbilical abdominal pain and recently went to the ER, where CT revealed a ventral hernia below his umbilicus. He has had a previous ventral hernia repaired a couple of years ago by myself and this hernia appears to be inferior to the previously repaired hernia. He would like the mass excised and the hernia repaired concurrently. DESCRIPTION OF PROCEDURE The patient was brought to the operating room and placed supine on the operating room table. General endotracheal anesthesia was administered and he was placed in the right lateral decubitus position on the table. His back was prepped and draped in sterile fashion. A time-out was completed. I marked the skin overlying the mass and then anesthetized the skin with 1% lidocaine plain. I then made about a 10 cm transverse incision and dissected through the dermis and subcutaneous fat. I dropped into the space wherein the mass resides and it appeared to be a lipoma with sharp demarcated borders and it had lobules going into surrounding subcutaneous tissue but it was not particularly adherent to the surrounding subcutaneous tissue. I used mostly blunt dissection with my finger to free it up and there was mostly areolar connective tissue around it, which was easily divided with electrocautery. I peeled it off the underlying muscle fascia and then passed the specimen off the field. I made the wound hemostatic with electrocautery and irrigated and dried the wound. I closed the wound with interrupted 3-0 Vicryl deep dermal sutures and I incorporated some of the underlying muscle fascia into this so that it closed the pocket down and then I closed the skin with running 4-0 subcuticular sutures. The skin was cleaned and dried and steri-strips applied followed by sterile surgical dressing. The patient was then placed in a supine position on the table and his arms were tucked. Once he was padded and secured to the table, his abdomen was prepped and draped in sterile fashion. Time-out was completed. I anesthetized the right subcostal skin with 0.5% ropivacaine plain and made an 8 mm transverse incision in the mid clavicular line and the subcostal area on the right. I then used the Veress needle and accessed the abdominal cavity and insufflated the peritoneal cavity to a pressure of 15 mmHg and then used the robotic 8 mm optical trocar and port with the camera in focus and was able to insert this camera into the port in the insufflated abdomen without any problems. I then swapped out to the robotic camera and under direct visualization placed a 12 mm robotic port in the right lower quadrant and another 8 mm robotic port in the right mid abdomen between the first two. After this was completed, the patient was placed in Trendelenburg and planed towards his left. We brought in the robot, docked it and targeted it and then inserted the instruments. Once we were all set up, I scrubbed out and went to the console. There was bowel adherent to the hernia so I gently had to perform adhesiolysis and separate the bowel from the hernia, which I did without any injury to the bowel other than just dividing the adhesions. Ultimately, I was able to get it all out of there and then I stripped out the hernia sac from inside the hernia and measured the dimensions of the fascial defect and it was 5 cm x 7 cm in dimensions. I picked out a 14 cm x 17 cm piece of dual mesh and placed a 2-0 Prolene suture on the Prolene mesh side and left it long so I could grab it once it was in the belly. I then rolled it up with the Prolene side out to protect the other side of the mesh and then put it through the 12 mm port and into the belly. I placed several V-Loc sutures into the belly as well. I then re-docked the robot and went back to the console and then I closed the defect with running V-Loc absorbable suture. I deflated the abdomen somewhat to take some pressure off the closure and then I used the Remi-Price and inserted it through what was the fascial defect in the belly. Actually, I placed it before closing the fascial defect and closed the fascial defect around the Remi-Price and then had my certified ophthalmic surgical assistant grab the suture that I had pre-placed on the mesh after I cut the other suture off that kept it rolled up with and then he pulled it towards the anterior abdominal wall and then clamped it into place. I then sutured the mesh into place all the way around circumferentially with absorbable V-Loc sutures and then ran another V- Loc suture down the middle of it to secure it to the abdominal wall to allow maximum adherence. After this was done, everything looked great and there was not any space for bowel to get up under the mesh. I then pulled out the 12 mm port and used the Remi-Price and placed a [id number] 0 Vicryl suture to close the fascia at this port site and it was airtight when this was done. I then desufflated the abdomen and removed the remaining the ports and closed the skin of each port site with 4-0 Monocryl subcuticular suture. I cut the Prolene coming out of the central stab incision that was holding the mesh up and then I cleaned and dried his abdomen and placed steri-strips over the incisions including the midline stab incision and covered each of these with sterile surgical dressings. The patient was then awakened, extubated in the operating room and transported to the recovery room in stable condition, having tolerated the procedure without apparent problems. TOBI
[2017-12-31] MEDS: cefOXitin/DEX(*) 1GM/50ML PREM 50 ML IVPB SCH (16:36)
[2017-12-31] MEDS: NS(*) 0.9% 1000 ML BAG 1,000 ML IV PRN (16:36)
[2017-12-31] MEDS ORDERED: ARTIFICIAL TEARS OINT 7 GM 7 GM TUBE OP SCH (21:00)
[2017-12-31] MEDS: FINASTERIDE 5 MG TAB PO SCH (21:26)
[2017-12-31] MEDS: METAXALONE 800 MG TAB PO SCH (21:26)
[2017-12-31] MEDS: TERAZOSIN HCL 1 MG CAP PO SCH (21:27)
[2018-01-01] VITALS (7 sets, daily range): BP systolic 120–153; BP diastolic 61–85; Ht 152.4 cm; Wt 151.0 kg
[2018-01-01] MEDS: cefOXitin/DEX(*) 1GM/50ML PREM 50 ML IVPB SCH ×3 (00:34→16:21)
[2018-01-01] MEDS: NS(*) 0.9% 1000 ML BAG 1,000 ML IV PRN (01:42)
[2018-01-01] MEDS: INSULIN HUM LISPRO 100 UN/ML 3 ML VIAL SUBQ PRN ×4 (06:25→21:41)
[2018-01-01] MEDS ORDERED: NS(*) 0.9% 1000 ML BAG 1,000 ML IV PRN (07:42)
--- NOTE | 2018-01-01 07:49 | General Surgery Progress Note ---
Subjective Progress Notes Subjective Main complaint is postop abdominal pain. No flatus yet. Not very hungry but he is thirsty. Physical Exam Vital Signs Date Time Temp Pulse Resp B/P (MAP) Pulse Ox O2 Delivery O2 Flow Rate FiO2 01/01/18 07:10 16 95 01/01/18 05:16 99.2 64 120/61 (80) CPAP 12.0 Intake and Output 01/01/18 07:00 Intake Total 2750 ml Output Total 1550 ml Balance 1200 ml Intake Oral 0 ml IV Total 2750 ml Output Urine Total 1550 ml General Appearance: Alert, Awake, No Acute Distress, Afebrile GI: Other (Soft, appropriate postop TTP, dressings C/D/I.) Extremities: Warm, Perfused Result Diagram: 12/30/17 0729 Assessment and Plan Problems: (1) Ventral hernia Status: Chronic Assessment & Plan: 01/01/18: Doing well. Awaiting return of bowel function. Will start clear diet but patient advised to go slowly. Ambulate and OOB to chair today. Pt advised to ambulate and to be out of bed as much as possible today. Will have PT see him and help him with how to get in/out of bed. Gonsalez out this morning. Continue PPI, lovenox. (2) Mass of subcutaneous tissue of back Status: Chronic Condition Stable. Time Spent: < 30 min Exam Sepsis Risk: No Definite Risk Problem Qualifiers (1) Ventral hernia: Obstruction and gangrene presence: without obstruction or gangrene Qualified Codes: K43.9 - Ventral hernia without obstruction or gangrene NOREEN MCCAIN MD Jan 01, 2018 07:49
[2018-01-01] MEDS: MODAFINIL 100 MG TAB PO SCH (08:44)
[2018-01-01] MEDS: METOPROLOL TART 50 MG TAB PO SCH (08:44)
[2018-01-01] MEDS: LEVOTHYROXINE SOD 0.05 MG TAB PO SCH (08:44)
[2018-01-01] MEDS: FUROSEMIDE 40 MG TAB PO SCH (08:44)
[2018-01-01] MEDS: LISINOPRIL 10 MG TAB PO SCH (08:44)
[2018-01-01] MEDS: DULoxetine HCL 30 MG CAPCR PO SCH (08:44)
[2018-01-01] MEDS: GABAPENTIN 300 MG CAP PO SCH ×5 (08:46→21:37)
[2018-01-01] MEDS ORDERED: PANTOPRAZOLE SOD 40 MG IV VIAL IVP SCH (09:00)
[2018-01-01] MEDS: RIVAROXABAN 10 MG TAB PO SCH (16:21)
--- NOTE | 2018-01-01 16:36 | Antimicrobial Stewardship ---
Antimicrobial Stewardship Empiricly appropriate: Yes Comment Post op antimicrobial prophylaxis Comment 12/30/17: Scr 1.6 Determine cumulative duration: Post op Prophylaxis Determine standard duration: 3 doses post op Comment Cefoxitin 1 g IV q8h for post op prophylaxis. Recommend d/c after three doses or 24 hours post op. Patient is afebrile and WBC's not drawn. Siomara Maria, PharmD, BCOP SIOMARA MARIA Jan 01, 2018 16:36
[2018-01-01] MEDS ORDERED: IBUPROFEN 600 MG TAB PO PRN (20:25)
[2018-01-01] MEDS ORDERED: MAGNESIUM HYDROXIDE* 30ML UDCP PO PRN (20:25)
[2018-01-01] MEDS ORDERED: INSULIN DETEMIR 100 UN/ML VIAL SUBQ SCH (21:00)
[2018-01-01] MEDS ORDERED: ARTIFICIAL TEARS OINT 7 GM 7 GM TUBE OP SCH (21:00)
[2018-01-01] MEDS: METAXALONE 800 MG TAB PO SCH (21:36)
[2018-01-01] MEDS: FINASTERIDE 5 MG TAB PO SCH (21:37)
[2018-01-01] MEDS: TERAZOSIN HCL 1 MG CAP PO SCH (21:37)
[2018-01-01] MEDS: DOCUSATE SODIUM 100 MG CAP PO SCH (21:38)
[2018-01-01] MEDS: ARTIFICIAL TEARS OINT 7 GM 7 GM TUBE OP SCH (21:38)
[2018-01-01] MEDS: INSULIN DETEMIR 100 U/ML 3 ML PEN SUBQ SCH (21:39)
[2018-01-02 00:43] VITALS: BP 130/71
[2018-01-02 04:27] VITALS: BP 104/51
[2018-01-02 06:53] VITALS: BP 111/56
[2018-01-02] MEDS: INSULIN HUM LISPRO 100 UN/ML 3 ML VIAL SUBQ PRN ×3 (07:42→20:43)
[2018-01-02] MEDS: INSULIN DETEMIR 100 U/ML 3 ML PEN SUBQ SCH ×2 (09:16→20:42)
[2018-01-02] MEDS: GLIMEPIRIDE 2 MG TAB PO SCH (09:16)
[2018-01-02] MEDS: GABAPENTIN 300 MG CAP PO SCH ×4 (09:16→20:48)
[2018-01-02] MEDS: POLYETHYLENE GLYCOL 17 GM PKT PO SCH (09:16)
[2018-01-02] MEDS: metFORMIN HCL 500 MG TAB PO SCH (09:17)
[2018-01-02] MEDS: DULoxetine HCL 30 MG CAPCR PO SCH (09:17)
[2018-01-02] MEDS: PANTOPRAZOLE SOD 40 MG TABEC PO SCH (09:17)
[2018-01-02] MEDS: DOCUSATE SODIUM 100 MG CAP PO SCH ×2 (09:17→20:39)
[2018-01-02] MEDS: LEVOTHYROXINE SOD 0.05 MG TAB PO SCH (09:18)
[2018-01-02] MEDS: MODAFINIL 100 MG TAB PO SCH (09:20)
[2018-01-02] MEDS: METOPROLOL TART 50 MG TAB PO SCH (09:21)
[2018-01-02] MEDS: LISINOPRIL 10 MG TAB PO SCH (09:21)
[2018-01-02] MEDS: FUROSEMIDE 40 MG TAB PO SCH (09:21)
[2018-01-02] MEDS ORDERED: BISACODYL 10 MG SUPP PR ONE (09:35)
--- NOTE | 2018-01-02 09:36 | General Surgery Progress Note ---
Subjective Progress Notes Subjective No complaints. No flatus. Tolerating diet. No bloating or N/V. Pain controlled. Physical Exam Vital Signs Date Time Temp Pulse Resp B/P (MAP) Pulse Ox O2 Delivery O2 Flow Rate FiO2 01/02/18 07:39 94 CPAP 9.0 01/02/18 06:53 97.8 60 12 111/56 (74) Intake and Output 01/02/18 07:00 Intake Total 2530 ml Output Total 2090 ml Balance 440 ml Intake Oral 1530 ml IV Total 1000 ml Output Urine Total 2090 ml # Voids 3 General Appearance: Alert, Awake, No Acute Distress, Afebrile GI: Other (Soft, appropriate postop TTP. Dressings all removed. All incisions look good without erythema or drainage.) Extremities: Warm, Perfused Integumentary: Other (Incision on back looks good without erythema or drainage.) Result Diagram: 12/30/17 0729 Assessment and Plan Problems: (1) Ventral hernia Status: Chronic Assessment & Plan: 01/01/18: POD#1 s/p robotic ventral hernia repair and large lipoma excision from his back. Doing well. Awaiting return of bowel function. Will start clear diet but patient advised to go slowly. Ambulate and OOB to chair today. Pt advised to ambulate and to be out of bed as much as possible today. Will have PT see him and help him with how to get in/out of bed. Gonsalez out this morning. Continue PPI, lovenox. 01/02/18: POD#2. Doing well. Not passing flatus yet, will try dulcolax suppository and continue bowel regimen today. Will keep him in the hospital today to monitor bowel function. He is advised that he can shower today and he should ambulate as much as he can today. O/W CCM. (2) Mass of subcutaneous tissue of back Status: Chronic Condition Stable. Time Spent: < 30 min Exam Sepsis Risk: No Definite Risk Problem Qualifiers (1) Ventral hernia: Obstruction and gangrene presence: without obstruction or gangrene Qualified Codes: K43.9 - Ventral hernia without obstruction or gangrene NOREEN MCCAIN MD Jan 02, 2018 09:36
[2018-01-02 10:59] VITALS: BP 131/73
[2018-01-02 15:16] VITALS: BP 126/62
[2018-01-02] MEDS: RIVAROXABAN 10 MG TAB PO SCH (16:45)
[2018-01-02 20:30] VITALS: BP 127/73
[2018-01-02] MEDS: ARTIFICIAL TEARS OINT 7 GM 7 GM TUBE OP SCH (20:39)
[2018-01-02] MEDS: TERAZOSIN HCL 1 MG CAP PO SCH (20:40)
[2018-01-02] MEDS: FINASTERIDE 5 MG TAB PO SCH (20:41)
[2018-01-02] MEDS: METAXALONE 800 MG TAB PO SCH (20:42)
[2018-01-02] MEDS ORDERED: SALINE 0.65% NAS SPR 44 ML BTL ONE (20:55)
[2018-01-03 04:45] VITALS: BP 100/53
[2018-01-03 06:46] VITALS: BP 110/66
[2018-01-03] MEDS: INSULIN HUM LISPRO 100 UN/ML 3 ML VIAL SUBQ PRN (07:53)
[2018-01-03] MEDS: POLYETHYLENE GLYCOL 17 GM PKT PO SCH (09:02)
[2018-01-03] MEDS: PANTOPRAZOLE SOD 40 MG TABEC PO SCH (09:04)
[2018-01-03] MEDS: METOPROLOL TART 50 MG TAB PO SCH (09:04)
[2018-01-03] MEDS: GLIMEPIRIDE 2 MG TAB PO SCH (09:04)
[2018-01-03] MEDS: MODAFINIL 100 MG TAB PO SCH (09:04)
[2018-01-03] MEDS: GABAPENTIN 300 MG CAP PO SCH (09:04)
[2018-01-03] MEDS: DULoxetine HCL 30 MG CAPCR PO SCH (09:04)
[2018-01-03] MEDS: metFORMIN HCL 500 MG TAB PO SCH (09:04)
[2018-01-03] MEDS: LISINOPRIL 10 MG TAB PO SCH (09:04)
[2018-01-03] MEDS: DOCUSATE SODIUM 100 MG CAP PO SCH (09:05)
[2018-01-03] MEDS: INSULIN DETEMIR 100 U/ML 3 ML PEN SUBQ SCH (09:05)
[2018-01-03] MEDS: LEVOTHYROXINE SOD 0.05 MG TAB PO SCH (09:05)
[2018-01-03] MEDS: FUROSEMIDE 40 MG TAB PO SCH (09:05)
[2018-01-03] MEDS ORDERED: PER PO (09:39)
[2018-01-03] MEDS ORDERED: DOCU-202 PO (09:39)
--- NOTE | 2018-01-03 09:42 | Short(Outpt) Discharge Summary ---
Discharge Summary Reason for Hosp/Final Diag: (1) Ventral hernia Status: Chronic Hospital Course & Plan: 01/01/18: POD#1 s/p robotic ventral hernia repair and large lipoma excision from his back. Doing well. Awaiting return of bowel function. Will start clear diet but patient advised to go slowly. Ambulate and OOB to chair today. Pt advised to ambulate and to be out of bed as much as possible today. Will have PT see him and help him with how to get in/out of bed. Gonsalez out this morning. Continue PPI, lovenox. 01/02/18: POD#2. Doing well. Not passing flatus yet, will try dulcolax suppository and continue bowel regimen today. Will keep him in the hospital today to monitor bowel function. He is advised that he can shower today and he should ambulate as much as he can today. O/W CCM. 01/03/18: POD#3. Doing well. Tolerating diet. Will d/c to home this morning. (2) Mass of subcutaneous tissue of back Status: Chronic Departure Discharge to: Home, Self Care Discharge Instructions Home Meds Active Scripts Oxycodone/Acetaminophen (OXYCODONE/ACETAMINOPHEN 5MG/325 MG) 5 Mg/325 Mg Tab, 1- 2 TAB PO Q4H PRN for PAIN, #30 TAB 0 Refills Prov:NOREEN MCCAIN MD 01/03/18 Docusate Sodium (DOCUSATE SODIUM) 100 Mg Capsule, 1 CAP PO BID, #30 CAPSULE 0 Refills Prov:NOREEN MCCAIN MD 01/03/18 Glimepiride (GLIMEPIRIDE) 2 Mg Tablet, 2 MG PO QDAY for 30 Days, #30 TAB Prov:HANNAH VELASCO MD 10/25/17 Reported Medications Oxygen (OXYGEN) Inha, 4 L INH continuous, L 10/23/17 Rivaroxaban 20 Mg (XARELTO 20 MG) 20 Mg Tablet, 20 MG PO QPM, TAB 10/23/17 Levothyroxine Sodium (SYNTHROID) 50 Mcg Tablet, 50 MCG PO QDAY, TAB 05/22/17 Metaxalone (METAXALONE) 800 Mg Tablet, 800 MG PO QHS 05/22/17 Omeprazole (OMEPRAZOLE) 20 Mg Capsule.dr, 1 CAP PO QDAY, CAP 05/22/17 Lisinopril (LISINOPRIL) 10 Mg Tablet, 10 MG PO QDAY, TAB 04/10/17 Meloxicam (MELOXICAM) 15 Mg Tablet, 15 MG PO QDAY 04/10/17 Atorvastatin Calcium (LIPITOR) 40 Mg Tablet, 2 TAB PO QDAY, TAB 04/10/17 Metoprolol Tartrate (METOPROLOL TARTRATE) 50 Mg Tab, 1 TAB PO QAM, TAB 01/11/13 Insulin Aspart (NOVOLOG) 100 Unit/1 Ml Cartridge, UNIT SQ TID PER SS 01/11/13 Insulin Detemir (LEVEMIR) 100 Unit/Ml Injs, 90 UNIT SUBQ BID 01/11/13 Lansoprazole (PREVACID) 30 Mg Capsule.dr, 30 MG PO QHS, #5 MG TAKE ONE CAPSULE BY MOUTH EVERY DAY 01/11/13 Duloxetine Hcl (CYMBALTA) 30 Mg Capsule.dr, 30 MG PO QAM 08/11/12 Modafinil (Provigil) 100 Mg Tab, 200 MG PO QAM 04/27/11 Finasteride (Proscar) 5 Mg Tab, 5 MG PO QHS, 0 Refills 10/31/10 Terazosin Hcl (Hytrin) 5 Mg Capsule, 5 MG PO QHS, 0 Refills 10/31/10 Furosemide (Furosemide) 40 Mg Tablet, 40 MG PO QAM, 0 Refills 10/31/10 Sitagliptin Phos/Metformin Hcl (Janumet 50-1,000 Mg Tablet) 1 Udtab Tablet, 2 UDTAB PO QAM, 0 Refills 10/31/10 Gabapentin (Neurontin) 600 Mg Tablet, 0200-6092 MG PO QID, 0 Refills After meals, dependent on intake 10/31/10 Follow up Referrals: General Surgery - 01/19/18 @ Surgery, General with NOREEN MCCAIN MD You have a follow up appointment scheduled with Dr. Mccain on 01/19/18, at 3:15pm. Diet: Diabetic Activity: No Heavy Lifting Special Instructions: You may shower as desired but don't immerse the incisions for 2 weeks. Avoid any activity that involves straining or lifting more than 10 pounds for 6 weeks after surgery. Wear the abdominal binder at all times, other than while showering/bathing, for 30 days after surgery. The binder will tend to slide up or down on your abdomen so please ensure it is covering the area below your belly button where the hernia was. You may take xarelto as prescribed. Problem Qualifiers (1) Ventral hernia: Obstruction and gangrene presence: without obstruction or gangrene Qualified Codes: K43.9 - Ventral hernia without obstruction or gangrene NOREEN MCCAIN MD Jan 03, 2018 09:42
== END 2018-01-03 09:36 | disposition home or self-care (01) | DRG 354 ==
LOC: OR 01:24 → MED 14:10 → INTOOBSV 14:10 → OBSVTOIN 14:10
PROVIDERS: ADMIT Surgery; ATTEND Surgery
PROC: 8E0W4CZ Robotic Assisted Procedure of Trunk Region, Percutaneous Endoscopic Approach (ICD-10-PCS; 2017-12-31)
PROC: 0WUF4JZ Supplement Abdominal Wall with Synthetic Substitute, Percutaneous Endoscopic Approach (ICD-10-PCS; principal; 2017-12-31 08:55)
PROC: 0JB70ZZ Excision of Back Subcutaneous Tissue and Fascia, Open Approach (ICD-10-PCS; 2017-12-31 08:55)
DX: K43.9 Ventral hernia without obstruction or gangrene (principal); Z68.44 Body mass index [BMI] 60.0-69.9, adult; D17.1 Benign lipomatous neoplasm of skin and subcutaneous tissue of trunk; E66.01 Morbid (severe) obesity due to excess calories; E11.22 Type 2 diabetes mellitus with diabetic chronic kidney disease; I12.9 Hypertensive chronic kidney disease with stage 1 through stage 4 chronic kidney disease, or unspecified chronic kidney disease; N18.3 Chronic kidney disease, stage 3 (moderate); E03.9 Hypothyroidism, unspecified; N40.0 Benign prostatic hyperplasia without lower urinary tract symptoms; K21.9 Gastro-esophageal reflux disease without esophagitis; G47.33 Obstructive sleep apnea (adult) (pediatric); Z96.652 Presence of left artificial knee joint; Z79.4 Long term (current) use of insulin; Z86.711 Personal history of pulmonary embolism; Z99.81 Dependence on supplemental oxygen
CPT/HCPCS: 36415; 36416; 82310; 82374; 82435; 82565; 82947; 82948; 84132; 84295; 84520; 85610; 88305; 96372; 97161; 97166; C1781; C9113; G0378; J0690; J0694; J1815; J2001; J2270; J2405; J2704; J2795; J3010; J3490; J7030; J7050

== ENCOUNTER → 2018-02-16 | Outpatient (CLI) | payer MEDICARE, OTHER ==
[2018-01-01 10:45] VITALS: BMI 65.0
[~2018-02-16] MED LIST changes: +DOCU-202 PO; +PER PO
== END ==
LOC: LAB 12:04
PROVIDERS: ATTEND Orthopaedic Surgery
DX: Z01.812 Encounter for preprocedural laboratory examination (principal); M75.41 Impingement syndrome of right shoulder; M75.101 Unspecified rotator cuff tear or rupture of right shoulder, not specified as traumatic; M75.21 Bicipital tendinitis, right shoulder

== ENCOUNTER 2018-02-22 01:25 | Day surgery (SDC) | payer OTHER, MEDICARE ==
[2018-01-01 10:45] VITALS: Ht 182.9 cm; Wt 152.0 kg
[~2018-02-22] VITALS: Ht 182.9 cm; Wt 152.0 kg
[2018-02-22] VITALS (7 sets, daily range): BP systolic 106–132; BP diastolic 60–84
[2018-02-22] MEDS ORDERED: LIDOCAINE/SOD BICARB 8.4% SYR ID ONE (06:15)
[2018-02-22] MEDS ORDERED: MIDAZOLAM 2 MG/2 ML VIAL IVP PRN (06:15)
[2018-02-22] MEDS ORDERED: NORMOSOL R SOLN(*) 1000 ML BAG 1,000 ML IV PRN (06:15)
[2018-02-22] MEDS ORDERED: CELECOXIB 200 MG CAP PO ONE (06:15)
[2018-02-22] MEDS ORDERED: ceFAZolin(*) 2GM/D5W 50ML 50 ML IVPB ONE (06:15)
[2018-02-22] MEDS ORDERED: fentaNYL CITR 100 MCG/2 ML AMP ONE (06:29)
[2018-02-22] MEDS ORDERED: SUCCINYLCHOL CHL 200MG/10ML VL ONE (06:30)
[2018-02-22] MEDS ORDERED: LIDOCAINE MPF 1% 5 ML VIAL ONE (06:30)
[2018-02-22] MEDS ORDERED: PROPOFOL EMUL(*) 10MG/ML 20 ML 20 ML ONE (06:30)
[2018-02-22] MEDS ORDERED: ONDANSETRON 4 MG/2 ML VIAL ONE (06:30)
[2018-02-22] MEDS ORDERED: ROCURONIUM BROM 10 MG/ML 10 ML ONE (06:30)
[2018-02-22] MEDS ORDERED: ROPIVACAINE 0.2% 20 ML VIAL ONE (06:31)
[2018-02-22] MEDS ORDERED: KETAMINE HCL-NS 50 MG/5 ML SYR ONE (06:33)
[2018-02-22] MEDS ORDERED: BUPIV/EPI 0.25% 1:200,000 50ML INFIL ONE (07:05)
[2018-02-22] MEDS ORDERED: SUGAMMADEX SOD 200 MG/2 ML SDV ONE (09:31)
[2018-02-22] MEDS ORDERED: INSULIN HUM REG 100 UN/ML 3 ML VIAL IV ONE (10:05)
[2018-02-22] MEDS ORDERED: KETOROLAC 30 MG/ML VIAL ONE (10:30)
[2018-02-22] MEDS ORDERED: ACETAMINOPHEN 500 MG TAB ONE (10:31)
[2018-02-22] MEDS ORDERED: ACET500T68 PO (10:35)
[2018-02-22] MEDS ORDERED: KET10 PO (10:36)
[2018-02-22] MEDS ORDERED: TRAM-420 PO (10:37)
[2018-02-22] MEDS ORDERED: OXYC5TAB38 PO (10:40)
--- NOTE | 2018-02-22 11:13 | OPERATIVE REPORT 1 ---
EVENT DATE: February 22, 2018 SURGEON: Bob Causey MD ANESTHESIOLOGIST: Marco Catalan MD ANESTHESIA: Right interscalene block followed by general. HEALTH CARE ASSISTANT: Jose Alfredo Guardado PA-C PREOPERATIVE DIAGNOSIS Right shoulder impingement syndrome and recurrent rotator cuff tear and possible biceps tendinopathy. 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 PROCEDURE PERFORMED Right shoulder arthroscopy with removal of intra-articular loose body followed by debridement of chondromalacia of the glenoid superiorly and debridement of labral degenerative tearing, debridement of cuff, arthroscopic supraspinous tendon repair, subacromial decompression, removal of bony loose body in the AC joint region, distal clavicle resection of 7 mm. IMPLANTS Two Harris and Nephew 4.5 mm helical anchors and two Harris and Nephew 4.5 mm footprint anchors. SPECIMENS None. COMPLICATIONS None. ESTIMATED BLOOD LOSS Less than 5 cc. DESCRIPTION OF PROCEDURE The patient received appropriate preoperative antibiotic, was brought to the OR, where Dr. Catalan performed right interscalene block followed by general anesthesia. The patient was placed in the left lateral decubitus position, right shoulder up with appropriate padding and positioners. The right shoulder was then prepped and draped in the usual sterile fashion and placed in 15 pounds of traction and abduction. Through a posterior approach, I injected into joint arthroscopic fluid followed by establishment of a posterior portal and I placed the camera through uncinate technique. Anterior portal was established. Biceps was absent. There was generalized synovitis and hyperemia. Subscap was intact. There appeared to be high-grade tear of the previously repaired rotator cuff tear. The posterior aspect of the infraspinatus was intact as was teres minor. There was a loose body in the joint and this was removed with shaver. 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 Humeral head shows some high-grade thinning but there were no unstable margins. Shaver was inserted. The labrum was debrided as well as chondromalacia. We debrided the rotator cuff down to stable base. It involved only the supraspinatus. This area was marked with PDS suture. We placed the scope in the posterior portal of the subacromial space and established our lateral portal under localization. We noted the high-grade tear of the supraspinatus. There was anterior acromial spur. This was delineated through removal of the soft tissues of the anterior third of the undersurface of the acromion with surface strap device and I performed an SAD starting 5 mm anteriorly down to the junction of the anterior middle thirds in 90/90 technique. We then debrided the cuff tear down to the stable base. The footprint was debrided to cancellous bone with shaver surface strap device and a bur. I then placed the first of the two anchors anteriorly and footprint accentuated 45-degree angle. These sutures were then passed anteriorly. One by one we passed them laterally and utilizing Elite suture passer, taking full thickness bites, we spaced these out evenly from anterior aspect of the tear to the mid aspect of the tear. A second anchor was established in the posterior aspect of the footprint centrally at a 45-degree angle. Again, these sutures were passed anteriorly. One by one, they were once again passed through the lateral portal and utilizing the Elite suture passer they were passed through the lateral portion of the cuff, taking full-thickness bites, spacing these sutures out through the posterior half of the tear. These four sutures were then tied arthroscopically from posterior to anterior. I then took one of the sutures from each of the knots and established our first footprint anchor anteriorly and the footprint laterally in the greater tuberosity in the standard fashion utilizing a 4.5 mm footprint anchor. The remaining four sutures were then brought once again through the lateral portion and we established our posterior footprint lateral to the greater tuberosity, the posterior aspect of the footprint in standard fashion, creating a cross-bridging two-row technique and the cuff tear was stable. We then viewed the AC joint and through the anterior portal placed the surface strap device and noted that there was a significant osteophyte that was loosely attached to fibrous tissue. This was freed up with the surface strap device and removed. This was quite large. Distal end of clavicle was then debrided of soft tissue utilizing the surface strap device and then distal clavicle resection of 7 mm was performed of the bur. Instrumentation was removed. Portals were closed subcutaneously with 4-0 Monocryl followed by Steri-strips. Injection of the portals of the subacromial space with ropivacaine followed by compressive dressing. The patient was extubated and taken to recovery in stable condition after being placed in UltraSling. Nonweightbearing is recommended through PT as well as protocol for rotator cuff repair, SAD and distal clavicle resection. Tylenol, Toradol, Tramadol and Oxy are recommended for pain. Dressings can be changed in two days. We will follow him up in our [facility]. TOBI
== END 2018-02-22 10:58 | disposition home or self-care (01) ==
LOC: OR 01:25
PROVIDERS: ATTEND Orthopaedic Surgery
DX: M25.811 Other specified joint disorders, right shoulder (principal); M75.101 Unspecified rotator cuff tear or rupture of right shoulder, not specified as traumatic; M75.21 Bicipital tendinitis, right shoulder; E03.9 Hypothyroidism, unspecified; G47.33 Obstructive sleep apnea (adult) (pediatric); K21.9 Gastro-esophageal reflux disease without esophagitis; E78.5 Hyperlipidemia, unspecified; E11.9 Type 2 diabetes mellitus without complications; F32.9 Major depressive disorder, single episode, unspecified; I10 Essential (primary) hypertension; Z86.711 Personal history of pulmonary embolism; Z79.4 Long term (current) use of insulin; Z79.84 Long term (current) use of oral hypoglycemic drugs
CPT/HCPCS: 29824; 29826; 29827; 36415; 36416; 82948; 84443; 94667; J0330; J1815; J1885; J2001; J2370; J2405; J2704; J2795; J3010; J3490; 76942; A4565; C1713; J0690

== ENCOUNTER → 2018-05-28 | Outpatient (CLI) | payer OTHER, MEDICARE ==
[2018-01-01 10:45] VITALS: BMI 65.0
[~2018-05-28] MED LIST changes: +ACET500T68 PO; +OXYC5TAB38 PO; +TRAM-420 PO
== END ==
LOC: LAB 13:49
PROVIDERS: ATTEND Urology
DX: N40.0 Benign prostatic hyperplasia without lower urinary tract symptoms (principal)
CPT/HCPCS: 36415; 84153

== ENCOUNTER → 2018-06-30 | Outpatient (CLI) | payer OTHER, MEDICARE ==
[2018-01-01 10:45] VITALS: BMI 65.0
[~2018-06-30] MED LIST changes: +CIPR-214 PO
== END ==
LOC: LAB 09:30
PROVIDERS: ATTEND Family Medicine
DX: E11.65 Type 2 diabetes mellitus with hyperglycemia (principal)
CPT/HCPCS: 36415; 82947

== ENCOUNTER 2018-07-05 02:26 | Day surgery (SDC) | payer OTHER, MEDICARE ==
[2018-01-01 10:45] VITALS: Ht 182.9 cm; Wt 152.9 kg
[2018-06-22 09:48] LABS: PLATELET COUNT, AUTOMATED 147 K/uL (150-450)
--- NOTE | 2018-06-22 09:58 | EKG ---
FACILITY: [facility] PATIENT NAME: TASHA PATHAK : [id number] MR: [id number] V: [id number] EXAM DATE: ORDERING PHYSICIAN: KASIA ALEJO TECHNOLOGIST: KATIA Villa Reason : PRE-OP Blood Pressure : / mmHG Vent. Rate : 067 BPM Atrial Rate : 067 BPM P-R Int : 166 ms QRS Dur : 086 ms QT Int : 370 ms P-R-T Axes : 072 056 041 degrees QTc Int : 390 ms Normal sinus rhythm Normal ECG When compared with ECG of 30-NOV-2017 11:15, No significant change was found Confirmed by AMIE PEREZ ([id number]) on 06/22/2018 3:29:25 PM Referred By: KASIA ALEJO Confirmed By:AMIE PEREZ
[2018-06-22 10:04] LABS: INR 1.41
--- NOTE | 2018-06-22 10:40 | RADIOLOGY IMAGING REPORT ---
FACILITY: [facility] PATIENT NAME: Jus Olivo : 1955 MR: [id number] V: [id number] EXAM DATE: ORDERING PHYSICIAN: KASIA ALEJO TECHNOLOGIST: Location: [facility] [place] Patient: Jus Olivo : 1955 Visit/Account:[id number] Date of Sevice: 06/22/2018 Exam type: CHEST PA LAT History: pre-operative clearance Comparison: October 23, 2017. Findings: There is linear scarring in the lung bases and mild elevation right hemidiaphragm that appear relativ keron unchanged when compared to the prior study. There is no evidence of acute appearing infiltrates, pleural effusions or pulmonary edema. Cardiac silhouette is normal in size. There are spondylotic changes of the thoracic spine. There are several mild compression fractures in the midthoracic regio n. IMPRESSION: 1. There is linear scarring in the lung bases that appears similar to the prior study Report Dictated By: Anna Parker MD at 06/22/2018 10:33 AM Report E-Signed By: Anna Parker MD at 06/22/2018 10:35 AM WSN:[email or web address]
[2018-07-05] VITALS (8 sets, daily range): BP systolic 97–130; BP diastolic 52–72
[~2018-07-05] VITALS: Ht 182.9 cm; Wt 152.9 kg
[~2018-07-05 02:26] MED LIST changes: +LIDOCAINE/SOD BICARB 8.4% SYR ID ONE
[2018-07-05] MEDS ORDERED: LIDOCAINE/SOD BICARB 8.4% SYR ONE (05:11)
[2018-07-05] MEDS ORDERED: LEVOFLOXACIN/D5W*500 MG/100 ML 100 ML IVPB ONE (06:05)
[2018-07-05] MEDS ORDERED: NORMOSOL R SOLN(*) 1000 ML BAG 1,000 ML IV PRN (06:30)
[2018-07-05] MEDS ORDERED: MIDAZOLAM 2 MG/2 ML VIAL IVP PRN (06:30)
[2018-07-05] MEDS ORDERED: fentaNYL CITR 250 MCG/5 ML AMP ONE (06:50)
[2018-07-05] MEDS ORDERED: ONDANSETRON 4 MG/2 ML VIAL ONE (06:51)
[2018-07-05] MEDS ORDERED: LIDOCAINE MPF 1% 5 ML VIAL ONE (06:51)
[2018-07-05] MEDS ORDERED: PROPOFOL EMUL(*) 10MG/ML 20 ML 40 ML ONE (06:51)
[2018-07-05] MEDS ORDERED: ROCURONIUM BROM 10 MG/ML 10 ML ONE (06:59)
[2018-07-05] MEDS ORDERED: SUGAMMADEX SOD 500 MG/5 ML SDV ONE (06:59)
[2018-07-05] MEDS ORDERED: KETAMINE HCL-NS 50 MG/5 ML SYR ONE (07:00)
[2018-07-05] MEDS ORDERED: BELLADONNA ALK/OPIUM 60MG SUPP PR ONE (07:20)
[2018-07-05] MEDS ORDERED: ACETAMINOPHEN(*)1000 MG/100 ML 100 ML IVPB ONE (07:58)
--- NOTE | 2018-07-05 10:06 | Urology Discharge Summary ---
Discharge Summary Reason for Hosp/Final Diag: (1) BPH (benign prostatic hyperplasia) Status: Resolved Departure Weight (Pounds): 337 Condition: Improved Discharge Instructions Home Meds Active Scripts Glimepiride (GLIMEPIRIDE) 2 Mg Tablet, 2 MG PO QDAY for 30 Days, #30 TAB Prov:HANNAH VELASCO MD 10/25/17 Reported Medications Oxycodone Hcl (OXYCODONE HCL) 5 Mg Tablet, 5 MG PO Q4-6H PRN for PAIN, #20 02/22/18 Tramadol Hcl (TRAMADOL HCL) 50 Mg Tablet, 1-2 TAB PO Q6H PRN for PAIN, #20 TAB 02/22/18 Ketorolac Tromethamine (KETOROLAC TROMETHAMINE) 10 Mg Tab, 10 MG PO Q8H PRN for PAIN, #12 TAB 02/22/18 Acetaminophen (TYLENOL EXTRA STRENGTH) 500 Mg Tablet, 1000 MG PO Q8H for 2 Days, TAB 02/22/18 Oxygen (OXYGEN) Inha, 4 L INH continuous, L 10/23/17 Rivaroxaban 20 Mg (XARELTO 20 MG) 20 Mg Tablet, 20 MG PO QPM, TAB 10/23/17 Levothyroxine Sodium (SYNTHROID) 50 Mcg Tablet, 50 MCG PO QDAY, TAB 05/22/17 Metaxalone (METAXALONE) 800 Mg Tablet, 800 MG PO QHS 05/22/17 Omeprazole (OMEPRAZOLE) 20 Mg Capsule.dr, 1 CAP PO QDAY, CAP 05/22/17 Lisinopril (LISINOPRIL) 10 Mg Tablet, 10 MG PO QDAY, TAB 04/10/17 Meloxicam (MELOXICAM) 15 Mg Tablet, 15 MG PO QDAY 04/10/17 Atorvastatin Calcium (LIPITOR) 40 Mg Tablet, 2 TAB PO QDAY, TAB 04/10/17 Metoprolol Tartrate (METOPROLOL TARTRATE) 50 Mg Tab, 1 TAB PO QAM, TAB 01/11/13 Insulin Aspart (NOVOLOG) 100 Unit/1 Ml Cartridge, UNIT SQ TID PER SS 01/11/13 Insulin Detemir (LEVEMIR) 100 Unit/Ml Injs, 90 UNIT SUBQ BID 01/11/13 Lansoprazole (PREVACID) 30 Mg Capsule.dr, 30 MG PO QHS, #5 MG TAKE ONE CAPSULE BY MOUTH EVERY DAY 01/11/13 Duloxetine Hcl (CYMBALTA) 30 Mg Capsule.dr, 30 MG PO QAM 08/11/12 Modafinil (Provigil) 100 Mg Tab, 200 MG PO QAM 04/27/11 Finasteride (Proscar) 5 Mg Tab, 5 MG PO QHS, 0 Refills 10/31/10 Terazosin Hcl (Hytrin) 5 Mg Capsule, 5 MG PO QHS, 0 Refills 10/31/10 Furosemide (Furosemide) 40 Mg Tablet, 40 MG PO QAM, 0 Refills 10/31/10 Sitagliptin Phos/Metformin Hcl (Janumet 50-1,000 Mg Tablet) 1 Udtab Tablet, 2 UDTAB PO QAM, 0 Refills 10/31/10 Gabapentin (Neurontin) 600 Mg Tablet, 2613-8299 MG PO QID, 0 Refills After meals, dependent on intake 10/31/10 Diet: Diabetic Activity: As Tolerated, No Heavy Lifting Special Instructions: Do not strain to have a bowel movement. Use milk of magnesia and fiber as necessary to prevent constipation. Drink plenty of water to help keep the urine clear. Call my office to schedule a appointment for Thursday to have the catheter removed. Call me for any problems or concerns [phone] Venous Thromboembolism Antithrombotics Is Pt On Any Antithrombotics?: No KASIA ALEJO MD Jul 05, 2018 10:06
--- NOTE | 2018-07-05 12:02 | OPERATIVE REPORT 1 ---
EVENT DATE: July 05, 2018 SURGEON: Carmelo Foley MD ANESTHESIOLOGIST: Prakash Jones MD ANESTHESIA: General. CORPORATE TRAVEL CONSULTANT: None. PREOPERATIVE DIAGNOSIS Benign prostatic hypertrophy with lower urinary tract symptoms. POSTOPERATIVE DIAGNOSIS Benign prostatic hypertrophy with lower urinary tract symptoms. PROCEDURE PERFORMED Bipolar transurethral resection of prostate. DESCRIPTION OF PROCEDURE The patient was brought to the operating room and after the adequate induction of general endotracheal anesthesia he was placed in the relaxed dorsal lithotomy position. The genitalia were scrubbed, prepped and draped in a sterile fashion and then the bladder examined with the resectoscope and the visual obturator. Trilobar hypertrophy was once again observed. The resectoscope element was then placed and TURP performed, first addressing the intravesical adenoma and the bladder neck, which was resected circumferentially. The left lobe of the prostate was then resected from the bladder neck distally to the verumontanum. A similar procedure was undertaken on the right lobe of the prostate. The roof of the prostate was then resected from the bladder neck to the mid gland and lastly the tissue in front of the verumontanum resected. All the chips were then evacuated with the Vidaao evacuator and the button device used first to obtain hemostasis and then to ablate residual adenoma that was observed in the prostatic fossa. Once accomplished, hemostasis was excellent. A 22-Czech 30 cc three-way Gonsalez catheter was passed into the bladder and connected to continuous irrigation. He was aroused from anesthesia and then transported to PACU in stable condition. TOBI
== END 2018-07-05 09:35 | disposition home or self-care (01) ==
LOC: OR 02:26
PROVIDERS: ATTEND Urology
DX: N40.1 Benign prostatic hyperplasia with lower urinary tract symptoms (principal); E11.9 Type 2 diabetes mellitus without complications; I10 Essential (primary) hypertension
CPT/HCPCS: 36415; 36416; 52648; 71046; 82948; 83036; 85025; 85610; 88305; 93005; J0131; J1956; J2001; J2405; J2704; J3010; J3490; 82310; 82374; 82435; 82565; 82947; 84132; 84295; 84520

== ENCOUNTER 2018-08-31 15:37 | Emergency (ER) | payer MEDICARE, OTHER ==
[2018-01-01 10:45] VITALS: BMI 65.0
[~2018-08-31 15:37] MED LIST changes: -SOLI10TA8 PO
[2018-08-31] MEDS ORDERED: NS(*) 0.9% 1000 ML BAG 1,000 ML IV ONE (15:39)
--- NOTE | 2018-08-31 15:39 | ER Report ---
History and Physical Time Seen By MD: 15:37 HPI/ROS CHIEF COMPLAINT: Hyperglycemia HISTORY OF PRESENT ILLNESS: Patient is a 63-year-old male here with complaints of hyperglycemia and sent in from urology where he was having a routine follow-up. Patient reportedly had glucose levels greater than 500 in spite of taking his home insulin dose. Patient denies recent history of infections, cough cold symptoms, fevers or chills. Patient is afebrile, hemodynamically stable at time of evaluation. Patient reports that his current glucose levels are extremely high for him. He did have chicken nuggets prior to coming in with a sweet and sour sauce. REVIEW OF SYSTEMS: Constitutional: No fever, no chills. Eyes: No discharge. ENT: No sore throat. Cardiovascular: No chest pain, no palpitations. Respiratory: No cough, no shortness of breath. Gastrointestinal: No abdominal pain, no vomiting. Genitourinary: No hematuria. Musculoskeletal: No back pain. Skin: No rashes. Neurological: No headache. Allergies: Coded Allergies: hydromorphone (Verified Adverse Reaction, Severe, BODY JERKS UNCONTROLLABLY, 08/31/18) Home Meds Active Scripts Glimepiride (GLIMEPIRIDE) 2 Mg Tablet, 2 MG PO QDAY for 30 Days, #30 TAB Prov:HANNAH VELASCO MD 10/25/17 Reported Medications Oxygen (OXYGEN) Inha, 4 L INH continuous, L 10/23/17 Rivaroxaban 20 Mg (XARELTO 20 MG) 20 Mg Tablet, 20 MG PO QPM, TAB 10/23/17 Levothyroxine Sodium (SYNTHROID) 50 Mcg Tablet, 50 MCG PO QDAY, TAB 05/22/17 Metaxalone (METAXALONE) 800 Mg Tablet, 800 MG PO QHS 05/22/17 Omeprazole (OMEPRAZOLE) 20 Mg Capsule.dr, 1 CAP PO QDAY, CAP 05/22/17 Lisinopril (LISINOPRIL) 10 Mg Tablet, 10 MG PO QDAY, TAB 04/10/17 Meloxicam (MELOXICAM) 15 Mg Tablet, 15 MG PO QDAY 04/10/17 Atorvastatin Calcium (LIPITOR) 40 Mg Tablet, 2 TAB PO QDAY, TAB 04/10/17 Metoprolol Tartrate (METOPROLOL TARTRATE) 50 Mg Tab, 1 TAB PO QAM, TAB 11/5/13 Insulin Aspart (NOVOLOG) 100 Unit/1 Ml Cartridge, UNIT SQ TID PER SS 01/11/13 Insulin Detemir (LEVEMIR) 100 Unit/Ml Injs, 90 UNIT SUBQ BID 01/11/13 Lansoprazole (PREVACID) 30 Mg Capsule.dr, 30 MG PO QHS, #5 MG TAKE ONE CAPSULE BY MOUTH EVERY DAY 01/11/13 Duloxetine Hcl (CYMBALTA) 30 Mg Capsule.dr, 30 MG PO QAM 08/11/12 Modafinil (Provigil) 100 Mg Tab, 200 MG PO QAM 04/27/11 Furosemide (Furosemide) 40 Mg Tablet, 40 MG PO QAM, 0 Refills 10/31/10 Sitagliptin Phos/Metformin Hcl (Janumet 50-1,000 Mg Tablet) 1 Udtab Tablet, 2 UDTAB PO QAM, 0 Refills 10/31/10 Gabapentin (Neurontin) 600 Mg Tablet, 8636-1076 MG PO QID, 0 Refills After meals, dependent on intake 10/31/10 Discontinued Reported Medications Oxycodone Hcl (OXYCODONE HCL) 5 Mg Tablet, 5 MG PO Q4-6H PRN for PAIN, #20 02/22/18 Tramadol Hcl (TRAMADOL HCL) 50 Mg Tablet, 1-2 TAB PO Q6H PRN for PAIN, #20 TAB 02/22/18 Ketorolac Tromethamine (KETOROLAC TROMETHAMINE) 10 Mg Tab, 10 MG PO Q8H PRN for PAIN, #12 TAB 02/22/18 Acetaminophen (TYLENOL EXTRA STRENGTH) 500 Mg Tablet, 1000 MG PO Q8H for 2 Days, TAB 02/22/18 Discontinued Scripts Sulfamethoxazole/Trimet 800-160 Mg Tab (BACTRIM DS TABLET) 1 Each Tablet, 1 TAB PO Q12H for 3 Days, #6 TAB Prov:KASIA ALEJO MD 07/07/18 Hx Smoking: No Smoking Status: Never Smoker Hx Substance Use Disorder: No Hx Alcohol Use: No Constitutional Vital Sign - Last 24 Hours 08/31/18 08/31/18 08/31/18 08/31/18 15:42 15:50 16:00 16:30 Temp 98.7 Pulse 72 65 63 Resp 20 32 9 B/P (MAP) 123/66 118/65 (82) 115/62 (79) Pulse Ox 90 91 90 O2 Delivery Nasal Cannula O2 Flow Rate 3.0 08/31/18 17:00 Pulse 63 Resp 14 B/P (MAP) 116/62 (80) Pulse Ox 91 Physical Exam General Appearance: The patient is alert, has no immediate need for airway protection and no signs of toxicity. No acute distress Eyes: Pupils equal and round no pallor or injection. ENT, Mouth: Mucous membranes are moist. Respiratory: There are no retractions, lungs are clear to auscultation. Cardiovascular: Regular rate and rhythm. Gastrointestinal: Abdomen is soft and non tender, no masses, bowel sounds normal. Neurological: No focal neurological deficits on examination Skin: Warm and dry, no rashes. Musculoskeletal: Neck is supple non tender. Extremities are nontender, nonswollen and have full range of motion. DIFFERENTIAL DIAGNOSIS: After history and physical exam differential diagnosis was considered for viral, bacterial infection, insulin resistance, electrolyte abnormality Medical Decision Making Data Points Result Diagram: 08/31/18 1550 08/31/18 1550 Laboratory Hematology Test 08/31/18 15:45 08/31/18 15:50 08/31/18 15:54 Urine Color Yellow Urine Clarity Cloudy Urine pH 5.0 pH (4.8-9.5) Urine Specific Norden 1.020 Urine Protein 30 mg/dL (NEGATIVE) Urine Glucose (UA) 500 mg/dL (NEGATIVE) Urine Ketones Negative mg/dL (NEGATIVE) Urine Blood Large (NEGATIVE) Urine Nitrite Negative (NEGATIVE) Urine Bilirubin Negative (NEGATIVE) Urine Urobilinogen Negative mg/dL (0.2-1.9) Urine Leukocyte Esterase Large (NEGATIVE) Urine RBC 77 /HPF (0-2/HPF) Urine WBC 1079 /HPF (0-5/HPF) Urine WBC Clumps Many /HPF Urine Squamous Epithelial Cells Many /LPF (</=FEW) Urine Bacteria Few /HPF (NONE-FEW) Urine Hyaline Casts Moderate /LPF (NONE-FEW) Urine Mucus None /HPF (NONE-FEW) Red Blood Count 4.32 M/uL (4.00-5.60) Mean Corpuscular Volume 92.8 fL (80.0-96.0) Mean Corpuscular Hemoglobin 32.3 pg (26.0-33.0) Mean Corpuscular Hemoglobin Concent 34.8 g/dL (32.0-36.0) Red Cell Distribution Width 13.7 % (11.5-14.5) Mean Platelet Volume 8.7 fL (7.2-11.1) Neutrophils (%) (Auto) 69.7 % (39.4-72.5) Lymphocytes (%) (Auto) 16.8 % (17.6-49.6) Monocytes (%) (Auto) 10.9 % (4.1-12.4) Eosinophils (%) (Auto) 1.9 % (0.4-6.7) Basophils (%) (Auto) 0.7 % (0.3-1.4) Nucleated RBC Relative Count (auto) 0.1 /100WBC Neutrophils # (Auto) 4.1 K/uL (2.0-7.4) Lymphocytes # (Auto) 1.0 K/uL (1.3-3.6) Monocytes # (Auto) 0.6 K/uL (0.3-1.0) Eosinophils # (Auto) 0.1 K/uL (0.0-0.5) Basophils # (Auto) 0.0 K/uL (0.0-0.1) Nucleated RBC Absolute Count (auto) 0.01 K/uL Blood Gas Patient Temperature 98.7 DEGREES Venous Blood pH 7.32 (7.31-7.41) Venous Blood Partial Pressure CO2 47 mmHg Venous Blood Partial Pressure O2 47 mmHg Venous Blood HCO3 24 mmol/L Venous Blood Oxygen Saturation 78 % Venous Blood Base Excess -2 mmol/L Oxygen Liters/Minute 90% on 3l Sodium Level 139 mmol/L (137-145) Potassium Level 5.1 mmol/L (3.5-5.0) Chloride Level 100 mmol/L (98-107) Carbon Dioxide Level 23 mmol/L (22-30) Blood Urea Nitrogen 34 mg/dl (9-21) Creatinine 1.70 mg/dl (0.66-1.25) Glomerular Filtration Rate Calc 40.7 Random Glucose 252 mg/dl (75-110) Osmolality 302 mOSM/K (275-295) Lactate 2.6 mmol/L (0.7-2.1) Calcium Level 10.2 mg/dl (8.4-10.2) Total Bilirubin 0.6 mg/dl (0.2-1.3) Aspartate Amino Transf (AST/SGOT) 41 U/L (0-35) Alanine Aminotransferase (ALT/SGPT) 44 U/L (0-56) Alkaline Phosphatase 101 U/L (0-126) Total Protein 6.9 g/dl (6.3-8.2) Albumin 4.3 g/dl (3.5-5.0) Acetone, Qualitative Negative Whole Blood Glucose 246 mg/DL (75-110) Chemistry Test 08/31/18 15:45 08/31/18 15:50 08/31/18 15:54 Urine Color Yellow Urine Clarity Cloudy Urine pH 5.0 pH (4.8-9.5) Urine Specific Norden 1.020 Urine Protein 30 mg/dL (NEGATIVE) Urine Glucose (UA) 500 mg/dL (NEGATIVE) Urine Ketones Negative mg/dL (NEGATIVE) Urine Blood Large (NEGATIVE) Urine Nitrite Negative (NEGATIVE) Urine Bilirubin Negative (NEGATIVE) Urine Urobilinogen Negative mg/dL (0.2-1.9) Urine Leukocyte Esterase Large (NEGATIVE) Urine RBC 77 /HPF (0-2/HPF) Urine WBC 1079 /HPF (0-5/HPF) Urine WBC Clumps Many /HPF Urine Squamous Epithelial Cells Many /LPF (</=FEW) Urine Bacteria Few /HPF (NONE-FEW) Urine Hyaline Casts Moderate /LPF (NONE-FEW) Urine Mucus None /HPF (NONE-FEW) White Blood Count 5.9 k/uL (4.5-11.0) Red Blood Count 4.32 M/uL (4.00-5.60) Hemoglobin 14.0 g/dL (14.0-18.0) Hematocrit 40.1 % (42.0-52.0) Mean Corpuscular Volume 92.8 fL (80.0-96.0) Mean Corpuscular Hemoglobin 32.3 pg (26.0-33.0) Mean Corpuscular Hemoglobin Concent 34.8 g/dL (32.0-36.0) Red Cell Distribution Width 13.7 % (11.5-14.5) Platelet Count 193 K/uL (150-450) Mean Platelet Volume 8.7 fL (7.2-11.1) Neutrophils (%) (Auto) 69.7 % (39.4-72.5) Lymphocytes (%) (Auto) 16.8 % (17.6-49.6) Monocytes (%) (Auto) 10.9 % (4.1-12.4) Eosinophils (%) (Auto) 1.9 % (0.4-6.7) Basophils (%) (Auto) 0.7 % (0.3-1.4) Nucleated RBC Relative Count (auto) 0.1 /100WBC Neutrophils # (Auto) 4.1 K/uL (2.0-7.4) Lymphocytes # (Auto) 1.0 K/uL (1.3-3.6) Monocytes # (Auto) 0.6 K/uL (0.3-1.0) Eosinophils # (Auto) 0.1 K/uL (0.0-0.5) Basophils # (Auto) 0.0 K/uL (0.0-0.1) Nucleated RBC Absolute Count (auto) 0.01 K/uL Blood Gas Patient Temperature 98.7 DEGREES Venous Blood pH 7.32 (7.31-7.41) Venous Blood Partial Pressure CO2 47 mmHg Venous Blood Partial Pressure O2 47 mmHg Venous Blood HCO3 24 mmol/L Venous Blood Oxygen Saturation 78 % Venous Blood Base Excess -2 mmol/L Oxygen Liters/Minute 90% on 3l Glomerular Filtration Rate Calc 40.7 Osmolality 302 mOSM/K (275-295) Lactate 2.6 mmol/L (0.7-2.1) Calcium Level 10.2 mg/dl (8.4-10.2) Total Bilirubin 0.6 mg/dl (0.2-1.3) Aspartate Amino Transf (AST/SGOT) 41 U/L (0-35) Alanine Aminotransferase (ALT/SGPT) 44 U/L (0-56) Alkaline Phosphatase 101 U/L (0-126) Total Protein 6.9 g/dl (6.3-8.2) Albumin 4.3 g/dl (3.5-5.0) Acetone, Qualitative Negative Whole Blood Glucose 246 mg/DL (75-110) Toxicology Test 08/31/18 15:50 Acetone, Qualitative Negative Urinalysis Test 08/31/18 15:45 Urine Color Yellow Urine Clarity Cloudy Urine pH 5.0 pH (4.8-9.5) Urine Specific Norden 1.020 Urine Protein 30 mg/dL (NEGATIVE) Urine Glucose (UA) 500 mg/dL (NEGATIVE) Urine Ketones Negative mg/dL (NEGATIVE) Urine Blood Large (NEGATIVE) Urine Nitrite Negative (NEGATIVE) Urine Bilirubin Negative (NEGATIVE) Urine Urobilinogen Negative mg/dL (0.2-1.9) Urine Leukocyte Esterase Large (NEGATIVE) Urine RBC 77 /HPF (0-2/HPF) Urine WBC 1079 /HPF (0-5/HPF) Urine WBC Clumps Many /HPF Urine Squamous Epithelial Cells Many /LPF (</=FEW) Urine Bacteria Few /HPF (NONE-FEW) Urine Hyaline Casts Moderate /LPF (NONE-FEW) Urine Mucus None /HPF (NONE-FEW) ED Course/Re-evaluation ED Course Patient is a 63-year-old male here with complaints of hyperglycemia sent in by his urologist after being found to have a glucose level of greater than 500. Patient was found to have a glucose level of 264 at time of evaluation. Patient is afebrile, hemodynamically stable. Patient was found to be hyperglycemic at 246 which is a drastic improvement from his recent glucose levels of greater than 500 and clinic. Urinalysis showed many white blood cell clumps, I did touch base with Dr. Alejo, the patient's urologist who recommended sending the urine for culture and holding off on antimicrobial therapy until that comes back positive. Patient did receive 1 L normal saline bolus as he did examine as fluid down, creatinine was elevated at 1.7 however patient did have elevations previously likely secondary to a prerenal azotemia. Electrolytes were stable, lactate was only mildly elevated, patient remained afebrile throughout course. Patient did remain asymptomatic denying fevers, chills, chest pain, shortness breath, nausea, vomiting, general malaise. I recommend that the patient follows up tomorrow with his PCP for repeat lab work and repeat evaluation. Patient voic ed understanding of plan. Patient was stable at time of discharge. Return precautions provided. Decision to Disposition Date: Aug 31, 2018 Decision to Disposition Time: 17:20 Depart Departure Latest Vital Signs Vital Signs Date Time Temp Pulse Resp B/P (MAP) Pulse Ox O2 Delivery O2 Flow Rate FiO2 08/31/18 17:00 63 14 116/62 (80) 91 08/31/18 15:50 3.0 08/31/18 15:42 98.7 Nasal Cannula Impression: Primary Impression: Hyperglycemia Additional Impression: CULLEN (acute kidney injury) Condition: Improved Disposition: HOME OR SELF-CARE Referrals: LAMINE JAMA DO (PCP) Patient Instructions: Diabetic Hyperglycemia (ED) Additional Instructions: Please drink plenty of water. Please follow-up with your family doctor tomorrow in order to obtain repeat lab evaluation as well as repeat examination. Please return promptly if you develop fevers, chills, chest pain, shortness breath, nausea, general malaise. You did have mild elevation in your kidney function which was treated with fluid bolus, your kidney function will need to be repeated to trend. Problem Qualifiers LUCIAN BALES DO Aug 31, 2018 15:39
[2018-08-31] MEDS ORDERED: cefTRIAXone 1 GM VIAL IVP ONE (16:20)
[2018-08-31 16:25] LABS: PLATELET COUNT, AUTOMATED 193 K/uL (150-450)
[2018-08-31 17:00] VITALS: BP 116/62
[2018-09-01] MEDS ORDERED: SOLI10TA8 PO (10:32)
== END 2018-08-31 17:28 | disposition home or self-care (01) ==
LOC: ER 15:41
DX: E11.65 Type 2 diabetes mellitus with hyperglycemia (principal); R79.89 Other specified abnormal findings of blood chemistry; N17.9 Acute kidney failure, unspecified
CPT/HCPCS: 36416; 81001; 82009; 82803; 82948; 83605; 83930; 85025; 87088; 87186; 96360; 99283; J7030; 82040; 82247; 82310; 82374; 82435; 82565; 82947; 84075; 84132; 84155; 84295; 84450; 84460; 84520

== ENCOUNTER → 2018-08-31 | Outpatient (CLI) | payer MEDICARE, OTHER ==
[2018-01-01 10:45] VITALS: BMI 65.0
[~2018-08-31] MED LIST changes: -LIDOCAINE/SOD BICARB 8.4% SYR ID ONE; -OMEP-125 PO; +OMEP-126 PO; +SOLI10TA8 PO; +SULF-198 PO
== END ==
LOC: LAB 11:46
PROVIDERS: ATTEND Urology
DX: N39.0 Urinary tract infection, site not specified (principal); N18.3 Chronic kidney disease, stage 3 (moderate); R39.15 Urgency of urination; B96.89 Other specified bacterial agents as the cause of diseases classified elsewhere
CPT/HCPCS: 81001; 87077; 87088; 87186

== ENCOUNTER → 2018-08-31 | Outpatient (CLI) | payer MEDICARE, OTHER ==
[2018-01-01 10:45] VITALS: BMI 65.0
== END ==
LOC: LAB 11:41
PROVIDERS: ATTEND Urology
DX: E11.9 Type 2 diabetes mellitus without complications (principal)
CPT/HCPCS: 36415; 82947

== ENCOUNTER 2018-09-14 13:18 | Outpatient (RCR) | payer MEDICARE, OTHER ==
[2018-01-01 10:45] VITALS: Ht 182.9 cm; Wt 156.0 kg
[~2018-09-14] VITALS: Ht 182.9 cm; Wt 156.0 kg
[~2018-09-14 13:18] MED LIST changes: +SOLI10TA8 PO
--- NOTE | 2018-09-14 16:14 | Medical Nutrition Therapy ---
Nutrition Anthropometrics Height (Inches): 72 Weight (Pounds): 344 BMI: 46.6 Moreno Nutrition Score: Moreno Nutrition Risk Score: Dietary Referral Nutrition Risk Factors: Nutrition Risk Comment: DIABETIC Physical Findings Physical Appearance: Morbidly Obese 40+ Skin Appearance Skin Appearance: Edema Edema Location Modifier: Edema Location: Type of Edema: Degree of Edema: Gastrointestinal Symptoms GI Symtoms: Tube Present: Bowel Sounds: Recent Bowel Pattern: Stool Characteristics: Nutrition/Food History Breakfast: Frt yogurt, banana, 8oz OJ Lunch: skips or sandwich, or leftovers, or rahmen Dinner: meat, veg or salad Nutritional Education Nutrition Education Topic: Diabetic Nutrition Learning Readiness: Interested Teaching Methods: Discussion, Handout Response to Teaching: Verbalize understanding, Reinforcement needed Teaching Recipient: Patient Nutrition Counseling: Pt states has had diabetes ~ 20 yrs. Has not recieved education in past. Pt taking Janument plus ~ 250U novolog + 180U levamir. Last A1C 10. Reviewed meds and insulin. Discussed insulin pump as option. Pt interested in looking into pump to help with better BG control. Pt states test BG before brft and it runs 180-300's. Reviewed DM stress, discussed glycemic response to CHO. discussed relationship with BG and obesity and encouraged wt loss. Made appt to review nutriton and make meal plan on 09/20. Reviewed hyper and hypglycemia. Pt states gets very tired by end of the day. Checked BG and it was 310. Nutrition Monitoring & Eval RD Patient Assessment Time: [address] Assessment Type: RD Education Nutritional Comment: Provided 90 minutes diabetes education focusing on glucomerter ed, med management, insulin management, diabetic stress. Copies To Copies to: LAMINE JAMA DO; KASIA ALEJO MD ; SARITA COLLINS Sep 14, 2018 16:14
== END 2018-10-19 ==
LOC: DIET 13:18
PROVIDERS: ATTEND Urology
DX: Z71.3 Dietary counseling and surveillance (principal); Z68.42 Body mass index [BMI] 45.0-49.9, adult
CPT/HCPCS: G0108 ×2

== ENCOUNTER 2018-09-20 12:49 | Outpatient (RCR) | payer MEDICARE, OTHER ==
[2018-01-01 10:45] VITALS: Ht 182.9 cm
--- NOTE | 2018-09-20 15:42 | Medical Nutrition Therapy ---
Nutrition Anthropometrics Height (Inches): 72 Weight (Pounds): 344 BMI: 46.1 Moreno Nutrition Score: Moreno Nutrition Risk Score: Dietary Referral Nutrition Risk Factors: Nutrition Risk Comment: DIABETIC Physical Findings Physical Appearance: Morbidly Obese 40+ Skin Appearance Skin Appearance: Edema Edema Location Modifier: Edema Location: Type of Edema: Degree of Edema: Gastrointestinal Symptoms GI Symtoms: Tube Present: Bowel Sounds: Recent Bowel Pattern: Stool Characteristics: Nutrition/Food History Good Breakfast: Raisin Bran, Yoplait, Coffee with Cream Lunch: HotDog Dinner: Chicken, Green Beans Snacks: Typically does not have snacks Nutritional Education Nutrition Education Topic: Diabetic Nutrition Learning Readiness: Interested Teaching Methods: Discussion, Handout Response to Teaching: Verbalize understanding Teaching Recipient: Patient Nutrition Counselin09/20/18-Pt states has had issues getting BGs below 200. Provided diabetic diet education. Introduced the diabetic exchange and provided handout of food lists. Discussed estimated calorie needs ~3000. Recommended following a 2500 kcal meal plan to lose ~1 lb of wt per week. Recommended a wt loss of 5-7% body weight (17-24 lb) to improve glucose control. Discussed his carbohydrate needs ~300g/day calculated by multiplying total calories by 40%. Developed a meal plan with the client that provides about 145g based on his typical intake. Breakfast- 1 Cup Oatmeal, 1 Banana, 2 Cups Milk, 2 Tbsp Peanut Butter, and 2 Cups of Coffee with creamer. Lunch- Triscuits 12 Crackers, Deli Meat 3 oz, Nuts 1 oz, 1 Apple, 1 Cup Carrots. Dinner- 4-8 oz Chicken, 1 C Green Beans Plan provides ~145g CHO. Discussed barriers to changing diet including stress and financial constraints. Discussed ways to cope with stress such as working on projects and fishing. Recommended apply for food stamps, pt was agreeable to this idea. Pt was very interested in getting an insulin pump. Asked pt to check blood glucose before and after meal using the meal plan. Monitor weight, blood glucose, and adequacy of meal plan.EDGAR BENOIT Sep 20, 2018 15:42
--- NOTE | 2018-10-14 15:35 | Medical Nutrition Therapy ---
Nutritional Education Nutrition Education Topic: Diabetic Nutrition Learning Readiness: Interested Teaching Methods: Discussion, Handout, Demonstration Response to Teaching: Verbalize understanding, Reinforcement needed Teaching Recipient: Patient Nutrition Counseling: Provided pre- insertion of insulin pump education. Provided education on Bolus Wizard, preset bolus, CHO counting, Hypoglycemia rule of 15, hyperglycemia management, sick day management, BG testing. The following setting were made: Basel 4.75 Max Basel 6 Max Bolus 25 Carb ratio 2 Preset bolus 25 Insulin Sensitivity factor 8 Concern is that pt was on 280- 330 units of insulin prior to pump. Using reduced fromula, pt is still on 228 U/day. With pump only holding 300U, pt would need to change infusin set every 1.5 day. Will discuss with [employer] sports medicine trainer about possible using pump for basal only and injecting insulin for meals d/t large amount of insulin he needs/day. Pt set up to receive education on reservoir filling, infusion set insertion, connecting glucometer and review of all setting on 10/26. Nutrition Monitoring & Eval RD Patient Assessment Time: 75 minutes Nutritional Comment: Provided 75 minutes diabetes education focusing on how an insulin pump operate. Copies To Copies to: LAMINE JAMA DO; KASIA ALEJO MD ; SARITA COLLINS Oct 14, 2018 15:35
== END 2018-10-25 ==
LOC: DIET 12:49
PROVIDERS: ATTEND Urology
DX: E11.9 Type 2 diabetes mellitus without complications (principal); Z68.42 Body mass index [BMI] 45.0-49.9, adult; Z71.3 Dietary counseling and surveillance
CPT/HCPCS: G0109 ×2

== ENCOUNTER → 2018-10-13 | Outpatient (REF) | payer OTHER ==
[2018-01-01 10:45] VITALS: BMI 65.0
[2018-10-13 14:01] LABS: PLATELET COUNT, AUTOMATED 182 K/uL (150-450)
== END ==
LOC: LAB 13:43
PROVIDERS: ATTEND Physician Assistant
DX: R07.89 Other chest pain (principal)
CPT/HCPCS: 82040; 82247; 82310; 82374; 82435; 82565; 82947; 84075; 84132; 84155; 84295; 84443; 84450; 84460; 84484; 84520; 85025